=== PATIENT | female | born 1970 | race Hispanic/Latino ===

== ENCOUNTER 2017-05-13 09:57 | Emergency (ER) | payer MEDICARE ==
[~2017-05-13 09:57] MED LIST: ALBU2.5V2 IH; ALPR-411 PO; ASPI-555 PO; BENZ-39 PO; DIPH25TA20 PO; ESOM40CA PO; FENT50PAT TD; FERR325T22 PO; FOLI1TAB15 PO; FURO20TA4 PO; HYDR12.54 PO; HYDR28OI10 TP; INSU100V12 SQ; LEVO175T20 PO; LID5O TP; LORA10TA7 PO; MELO-106 PO; METH2.5T6 PO; METO-409 PO; MYCO500T PO; ONDA8TAB11 PO; POTA-79 PO; PRED10TA3 PO; PREG100C PO; PROZ5L PO; REPA2 PO; ROPI1TAB38 PO; TEMA30CA5 PO; TRAM50TA4 PO; TRIAMCINOLONE ACET TP; VALS160T28 PO; [UNRECOGNIZED DRUG - CODE] PO
[2017-05-13 10:30] LABS: BASOPHILS % (AUTO) 0.8 % (0.0-5.0); EOSINOPHILS % (AUTO) 1.4 % (0.0-8.0); HEMATOCRIT 37.6 % (36-48); LYMPHOCYTES % (AUTO) 25.1 % (21.0-51.0); MEAN CORPUSCULAR HEMOGLOBIN 27.7 pg (27.0-33.0); MEAN CORPUSCULAR HGB CONC 32.7 g/dL (32.0-36.0); MEAN CORPUSCULAR VOLUME 84.5 fL (79-99); MONOCYTES % (AUTO) 7.4 % (3.0-13.0); NEUTROPHILS % (AUTO) 65.3 % (40.0-77.0); NUCLEATED RED BLOOD CELLS 0.1 % (0.0-0.19); PLATELET COUNT (AUTO) 113 K/uL (130-400); RED BLOOD CELL COUNT(AUTO) 4.45 MIL/uL (4.00-5.50); RED CELL DISTRIBUTION WIDTH 16.1 % (11.0-15.5); WHITE BLOOD COUNT (AUTO) 4.6 K/uL (4.8-10.8)
[2017-05-13 10:43] LABS: CARBON DIOXIDE 27 mmol/L (21-32); CHLORIDE 103 mmol/L (101-111); GLOMERULAR FILTR. RATE CALC 63 mL/min (>60); GLUCOSE,RANDOM 275 mg/dL (70-105); POTASSIUM 3.8 mmol/L (3.5-5.1); SODIUM SERUM 138 mmol/L (136-145); UREA NITROGEN, BLOOD 11 mg/dL (7-18)
[2017-05-13 10:56] LABS: ALANINE AMINOTRANSFERASE 25 U/L (12-78); ALBUMIN 2.8 g/dL (3.5-5.0); ASPARTATE AMINOTRANSFERASE 22 U/L (10-37); BILIRUBIN,TOTAL 0.2 mg/dL (0.2-1.0); CREATINE KINASE MB < 0.5 ng/mL (0.5-3.6); CREATINE KINASE, TOTAL 31 U/L (21-232); TOTAL PROTEIN, SERUM 6.4 g/dL (6.0-8.3)
[2017-05-13] MEDS ORDERED: ACETAMINOPHEN 325 MG TAB ONE (10:57)
== END 2017-05-13 11:58 | disposition home or self-care (01) ==
LOC: EDH 09:57
DX: J09.X2 Influenza due to identified novel influenza A virus with other respiratory manifestations (principal); E11.9 Type 2 diabetes mellitus without complications; I10 Essential (primary) hypertension; M32.9 Systemic lupus erythematosus, unspecified; I25.10 Atherosclerotic heart disease of native coronary artery without angina pectoris; Z90.710 Acquired absence of both cervix and uterus; Z98.890 Other specified postprocedural states
CPT/HCPCS: 36415; 71010; 80053; 82550; 82553; 83605; 84484; 85025; 87040; 87804; 93005

== ENCOUNTER 2017-05-17 12:11 | Inpatient (IN) | payer MEDICARE ==
[~2017-05-17] VITALS: Ht 165.1 cm; Wt 91.5 kg
[2017-05-17] MEDS ORDERED: METHYLPREDNISOLONE SOD SUCC 125MG/2ML VIAL ONE (12:32)
[2017-05-17] MEDS ORDERED: IPRATROPIUM/ALBUTEROL SULFATE 3 ML SOLUTION IH ONE ×2 (12:38→14:19)
[2017-05-17 13:03] LABS: BASOPHILS % (AUTO) 2.5 % (0.0-5.0); EOSINOPHILS % (AUTO) 1.7 % (0.0-8.0); HEMATOCRIT 37.3 % (36-48); LYMPHOCYTES % (AUTO) 31.9 % (21.0-51.0); MEAN CORPUSCULAR HEMOGLOBIN 27.7 pg (27.0-33.0); MEAN CORPUSCULAR HGB CONC 32.9 g/dL (32.0-36.0); MEAN CORPUSCULAR VOLUME 84.2 fL (79-99); MONOCYTES % (AUTO) 6.9 % (3.0-13.0); PLATELET COUNT (AUTO) 159 K/uL (130-400); RED BLOOD CELL COUNT(AUTO) 4.43 MIL/uL (4.00-5.50); RED CELL DISTRIBUTION WIDTH 16.1 % (11.0-15.5); WHITE BLOOD COUNT (AUTO) 4.6 K/uL (4.8-10.8)
[2017-05-17 13:34] LABS: CARBON DIOXIDE 25 mmol/L (21-32); CHLORIDE 105 mmol/L (101-111); CREATININE 0.7 mg/dL (0.5-1.5); GLOMERULAR FILTR. RATE CALC 95 mL/min (>60); GLUCOSE,RANDOM 152 mg/dL (70-105); POTASSIUM 3.4 mmol/L (3.5-5.1); SODIUM SERUM 142 mmol/L (136-145); UREA NITROGEN, BLOOD 7 mg/dL (7-18)
[2017-05-17 13:48] LABS: ALANINE AMINOTRANSFERASE 16 U/L (12-78); ALBUMIN 2.8 g/dL (3.5-5.0); ASPARTATE AMINOTRANSFERASE 16 U/L (10-37); BILIRUBIN,TOTAL 0.5 mg/dL (0.2-1.0); CREATINE KINASE MB < 0.5 ng/mL (0.5-3.6); CREATINE KINASE, TOTAL 26 U/L (21-232); TOTAL PROTEIN, SERUM 6.5 g/dL (6.0-8.3)
[2017-05-17] MEDS ORDERED: PROMETHAZINE/CODEINE 6.25-10MG/5ML CUP PO SCH (15:15)
[2017-05-17] MEDS: SODIUM CHLORIDE 0.9% 1000ML 1,000 ML IV SCH (17:17)
[2017-05-17] MEDS: METHYLPREDNISOLONE SOD SUCC 125MG/2ML VIAL IVP SCH (17:18)
[2017-05-17] MEDS: ALBUTEROL SULFATE 0.083% 2.5 MG/3 ML INH IH SCH ×2 (18:41→22:19)
[2017-05-17 19:00] VITALS: BP 148/94
[2017-05-17] MEDS: OSELTAMIVIR PHOSPHATE 75 MG CAP PO SCH (21:23)
[2017-05-17] MEDS: GUAIFENESIN SUGAR-FREE 100 MG/5 ML UDCUP PO PRN (21:48)
[2017-05-17] MEDS ORDERED: ONDANSETRON ODT 4 MG TAB PO PRN (22:30)
[2017-05-17] MEDS ORDERED: ALPRAZOLAM 1 MG TAB PO PRN (22:30)
[2017-05-17] MEDS ORDERED: TRAMADOL HCL 50 MG TABLET PO PRN (22:30)
[2017-05-17] MEDS ORDERED: POTASSIUM CHLORIDE 10% ELIXIR 20 MEQ/15 ML UDCUP PO PRN (23:45)
[2017-05-17] MEDS ORDERED: ACETAMINOPHEN 325 MG TAB PO PRN (23:45)
[2017-05-17] MEDS ORDERED: GLUCAGON 1MG KIT 1 MG ML IM PRN (23:45)
[2017-05-17] MEDS ORDERED: DEXTROSE 50%-WATER 50 ML DISP.SYRIN IV PRN (23:45)
[2017-05-17] MEDS ORDERED: LACTULOSE 20 GM/30 ML UDCUP PO PRN (23:45)
[2017-05-17] MEDS ORDERED: POTASSIUM CHLORIDE 20MEQ/100ML 100 ML IV PRN (23:45)
[2017-05-17] MEDS ORDERED: HYDRALAZINE HCL 20 MG/ML VIAL IV PRN (23:45)
[2017-05-17] MEDS ORDERED: LIDOCAINE HCL-MPF 1% 2ML VIAL IVP PRN (23:45)
[2017-05-18] VITALS: BP 145/83
[2017-05-18] MEDS: METHYLPREDNISOLONE SOD SUCC 125MG/2ML VIAL IVP SCH ×4 (00:44→18:23)
[2017-05-18] MEDS: AZITHROMYCIN 500MG+NS 250ML 250 ML IV SCH (00:44)
[2017-05-18] MEDS ORDERED: INSULIN HUMULIN R 100 UNIT/ML 3ML SQ SCH ×2 (01:00→07:30)
[2017-05-18] MEDS: ALBUTEROL SULFATE 0.083% 2.5 MG/3 ML INH IH SCH ×5 (02:05→21:51)
[2017-05-18 04:00] VITALS: BP 160/91
[2017-05-18] MEDS: LEVOTHYROXINE 100 MCG TABLET PO SCH (06:22)
[2017-05-18] MEDS: LEVOTHYROXINE 75 MCG TABLET PO SCH (06:22)
[2017-05-18] MEDS: INSULIN HUMULIN R 100 UNIT/ML 3ML SQ SCH ×4 (06:33→22:37)
[2017-05-18 07:00] VITALS: BP 128/79
[2017-05-18 08:04] LABS: BASOPHILS % (AUTO) 0.2 % (0.0-5.0); HEMATOCRIT 34.8 % (36-48); LYMPHOCYTES % (AUTO) 20.3 % (21.0-51.0); MEAN CORPUSCULAR HEMOGLOBIN 27.8 pg (27.0-33.0); MEAN CORPUSCULAR HGB CONC 33.3 g/dL (32.0-36.0); MEAN CORPUSCULAR VOLUME 83.4 fL (79-99); MONOCYTES % (AUTO) 1.8 % (3.0-13.0); NEUTROPHILS % (AUTO) 77.7 % (40.0-77.0); PLATELET COUNT (AUTO) 163 K/uL (130-400); RED BLOOD CELL COUNT(AUTO) 4.17 MIL/uL (4.00-5.50); RED CELL DISTRIBUTION WIDTH 15.7 % (11.0-15.5); WHITE BLOOD COUNT (AUTO) 2.6 K/uL (4.8-10.8)
[2017-05-18 08:19] LABS: HEMOGLOBIN A1C 11.1 % (4.0-6.0)
[2017-05-18 08:45] LABS: CREATININE 1.1 mg/dL (0.5-1.5); POTASSIUM 3.5 mmol/L (3.5-5.1); THYROID STIMULATING HORMONE 2.17 uIU/mL (0.36-3.74)
[2017-05-18] MEDS: Metoprolol Succinate 100 MG PO SCH (09:00)
[2017-05-18] MEDS: PROZAC PO SCH (09:00)
[2017-05-18] MEDS: GUAIFENESIN SUGAR-FREE 100 MG/5 ML UDCUP PO PRN (11:43)
[2017-05-18] MEDS: FOLIC ACID 1 MG TABLET PO SCH (11:43)
[2017-05-18] MEDS: FAMOTIDINE 20MG TAB 20 MG TAB PO SCH ×2 (11:44→22:57)
[2017-05-18] MEDS: ASPIRIN 81 MG EC TAB PO SCH (11:44)
[2017-05-18] MEDS: FUROSEMIDE 20 MG TABLET PO SCH ×2 (11:44→22:57)
[2017-05-18] MEDS: OSELTAMIVIR PHOSPHATE 75 MG CAP PO SCH ×2 (11:44→22:57)
[2017-05-18] MEDS: LOSARTAN 100 MG TABLET PO SCH (11:44)
[2017-05-18] MEDS: MELOXICAM 7.5 MG TABLET PO SCH ×2 (11:45→22:57)
[2017-05-18] MEDS: FERROUS SULFATE 325 MG TABLET.DR PO SCH (11:45)
[2017-05-18] MEDS: PANTOPRAZOLE SODIUM 40 MG TABLET.DR PO SCH (11:45)
[2017-05-18] MEDS: PREGABALIN 100 MG CAPSULE PO SCH ×3 (11:47→23:01)
[2017-05-18] MEDS: SODIUM CHLORIDE 0.9% 1000ML 1,000 ML IV SCH ×2 (11:49→12:30)
[2017-05-18] MEDS: POTASSIUM CHLORIDE 20 MEQ ERTAB PO PRN (12:01)
[2017-05-18 12:10] VITALS: BP 145/91
[2017-05-18 16:00] VITALS: BP 136/65
[2017-05-18 19:00] VITALS: BP 149/92
[2017-05-18] MEDS: TEMAZEPAM 30 MG CAP PO SCH (22:57)
[2017-05-18] MEDS: ROPINIROLE HCL 1 MG TABLET PO SCH (22:58)
[2017-05-18] MEDS ORDERED: SERT100T PO (23:38)
[2017-05-19] VITALS (7 sets, daily range): BP systolic 112–160; BP diastolic 63–91
[2017-05-19] MEDS ORDERED: DIPHENHYDRAMINE HCL 25 MG CAPSULE PO PRN
[2017-05-19] MEDS ORDERED: HYDROCORTISONE 2.5% 28GM CREAM TP PRN
[2017-05-19] MEDS ORDERED: HYDROCODONE/ACETAMINOPHEN 10/325 MG TAB PO PRN
[2017-05-19] MEDS: METHYLPREDNISOLONE SOD SUCC 125MG/2ML VIAL IVP SCH ×4 (00:18→17:09)
[2017-05-19] MEDS: AZITHROMYCIN 500MG+NS 250ML 250 ML IV SCH (00:18)
[2017-05-19] MEDS: ALBUTEROL SULFATE 0.083% 2.5 MG/3 ML INH IH SCH ×6 (02:20→22:12)
[2017-05-19 04:37] LABS: BASOPHILS % (AUTO) 0.1 % (0.0-5.0); HEMATOCRIT 30.9 % (36-48); LYMPHOCYTES % (AUTO) 3.1 % (21.0-51.0); MEAN CORPUSCULAR HEMOGLOBIN 28.2 pg (27.0-33.0); MEAN CORPUSCULAR HGB CONC 33.5 g/dL (32.0-36.0); MEAN CORPUSCULAR VOLUME 84.2 fL (79-99); MONOCYTES % (AUTO) 2.1 % (3.0-13.0); NEUTROPHILS % (AUTO) 94.7 % (40.0-77.0); PLATELET COUNT (AUTO) 184 K/uL (130-400); RED BLOOD CELL COUNT(AUTO) 3.67 MIL/uL (4.00-5.50); RED CELL DISTRIBUTION WIDTH 15.7 % (11.0-15.5); WHITE BLOOD COUNT (AUTO) 8.1 K/uL (4.8-10.8)
[2017-05-19 04:49] LABS: CREATININE 1.3 mg/dL (0.5-1.5); POTASSIUM 3.3 mmol/L (3.5-5.1)
[2017-05-19] MEDS: LEVOTHYROXINE 100 MCG TABLET PO SCH (06:19)
[2017-05-19] MEDS: POTASSIUM CHLORIDE 20 MEQ ERTAB PO PRN ×3 (06:19→13:58)
[2017-05-19] MEDS: LEVOTHYROXINE 75 MCG TABLET PO SCH (06:20)
[2017-05-19] MEDS: INSULIN HUMULIN R 100 UNIT/ML 3ML SQ SCH ×4 (06:25→22:32)
[2017-05-19] MEDS: SODIUM CHLORIDE 0.9% 1000ML 1,000 ML IV SCH ×4 (06:31→17:19)
[2017-05-19] MEDS: PROZAC PO SCH (09:00)
[2017-05-19] MEDS ORDERED: INSULIN DETEMIR 10ML 100 UNIT/ML 10ML SQ SCH ×2 (09:00→21:00)
[2017-05-19] MEDS: MYCOPHENOLATE MOFETIL 500 MG PO SCH ×2 (09:00→21:00)
[2017-05-19] MEDS: POTASSIUM CHLORIDE 20 MEQ ERTAB PO SCH ×4 (09:00→21:00)
[2017-05-19] MEDS ORDERED: FENTANYL 50 MCG/HR PATCH TD SCH (09:00)
[2017-05-19] MEDS: Metoprolol Succinate 100 MG PO SCH (09:00)
[2017-05-19] MEDS: LIDOCAINE HCL 5% OINT 36GM TUBE TP SCH ×3 (09:00→21:00)
[2017-05-19] MEDS: SERTRALINE HCL 50 MG TABLET PO SCH (10:07)
[2017-05-19] MEDS: HYDROCHLOROTHIAZIDE 25 MG TABLET PO SCH (10:08)
[2017-05-19] MEDS: LORATADINE 10 MG TABLET PO SCH (10:08)
[2017-05-19] MEDS: PREGABALIN 100 MG CAPSULE PO SCH ×3 (10:12→21:58)
[2017-05-19] MEDS: ASPIRIN 81 MG EC TAB PO SCH (10:12)
[2017-05-19] MEDS: OSELTAMIVIR PHOSPHATE 75 MG CAP PO SCH ×2 (10:13→21:58)
[2017-05-19] MEDS: LOSARTAN 100 MG TABLET PO SCH (10:13)
[2017-05-19] MEDS: FERROUS SULFATE 325 MG TABLET.DR PO SCH (10:14)
[2017-05-19] MEDS: FUROSEMIDE 20 MG TABLET PO SCH ×2 (10:14→21:57)
[2017-05-19] MEDS: MELOXICAM 7.5 MG TABLET PO SCH ×2 (10:15→21:57)
[2017-05-19] MEDS: FAMOTIDINE 20MG TAB 20 MG TAB PO SCH ×2 (10:15→21:58)
[2017-05-19] MEDS: PANTOPRAZOLE SODIUM 40 MG TABLET.DR PO SCH (10:15)
[2017-05-19] MEDS: FOLIC ACID 1 MG TABLET PO SCH (10:16)
[2017-05-19] MEDS: REPAGLINIDE 1 MG TAB PO SCH ×3 (10:25→17:04)
[2017-05-19] MEDS: INSULIN GLARGINE 100 UNITS/ML 10 ML VIAL SQ SCH ×2 (12:45→22:32)
[2017-05-19] MEDS: TEMAZEPAM 30 MG CAP PO SCH (21:58)
[2017-05-19] MEDS: ROPINIROLE HCL 1 MG TABLET PO SCH (21:58)
[2017-05-20] MEDS: METHYLPREDNISOLONE SOD SUCC 125MG/2ML VIAL IVP SCH ×3 (01:19→11:23)
[2017-05-20] MEDS: AZITHROMYCIN 500MG+NS 250ML 250 ML IV SCH ×2 (01:19→23:28)
[2017-05-20] MEDS: ALBUTEROL SULFATE 0.083% 2.5 MG/3 ML INH IH SCH ×6 (01:51→21:56)
[2017-05-20 04:00] VITALS: BP 125/67
[2017-05-20 04:31] LABS: BASOPHILS % (AUTO) 0.1 % (0.0-5.0); HEMATOCRIT 32.5 % (36-48); LYMPHOCYTES % (AUTO) 2.4 % (21.0-51.0); MEAN CORPUSCULAR HEMOGLOBIN 27.7 pg (27.0-33.0); MEAN CORPUSCULAR VOLUME 83.9 fL (79-99); MONOCYTES % (AUTO) 1.6 % (3.0-13.0); NEUTROPHILS % (AUTO) 95.9 % (40.0-77.0); PLATELET COUNT (AUTO) 187 K/uL (130-400); RED BLOOD CELL COUNT(AUTO) 3.87 MIL/uL (4.00-5.50); WHITE BLOOD COUNT (AUTO) 10.1 K/uL (4.8-10.8)
[2017-05-20 04:36] LABS: POTASSIUM 3.2 mmol/L (3.5-5.1)
[2017-05-20] MEDS: LEVOTHYROXINE 100 MCG TABLET PO SCH (06:15)
[2017-05-20] MEDS: SODIUM CHLORIDE 0.9% 1000ML 1,000 ML IV SCH (06:15)
[2017-05-20] MEDS: LEVOTHYROXINE 75 MCG TABLET PO SCH (06:15)
[2017-05-20] MEDS: POTASSIUM CHLORIDE 20 MEQ ERTAB PO PRN (06:16)
[2017-05-20] MEDS: INSULIN HUMULIN R 100 UNIT/ML 3ML SQ SCH ×4 (06:24→22:01)
[2017-05-20] MEDS: INSULIN GLARGINE 100 UNITS/ML 10 ML VIAL SQ SCH ×2 (06:25→22:05)
[2017-05-20 07:52] VITALS: BP 148/88
[2017-05-20] MEDS: MYCOPHENOLATE MOFETIL 500 MG PO SCH ×2 (09:00→21:00)
[2017-05-20] MEDS: Metoprolol Succinate 100 MG PO SCH (09:00)
[2017-05-20] MEDS: LIDOCAINE HCL 5% OINT 36GM TUBE TP SCH ×3 (09:00→21:00)
[2017-05-20] MEDS: PROZAC PO SCH (09:00)
[2017-05-20] MEDS: POTASSIUM CHLORIDE 20 MEQ ERTAB PO SCH ×4 (10:23→21:45)
[2017-05-20] MEDS: LOSARTAN 100 MG TABLET PO SCH (10:23)
[2017-05-20] MEDS: OSELTAMIVIR PHOSPHATE 75 MG CAP PO SCH ×2 (10:23→21:45)
[2017-05-20] MEDS: LORATADINE 10 MG TABLET PO SCH (10:23)
[2017-05-20] MEDS: PREGABALIN 100 MG CAPSULE PO SCH ×3 (10:23→21:45)
[2017-05-20] MEDS: MELOXICAM 7.5 MG TABLET PO SCH ×2 (10:24→21:45)
[2017-05-20] MEDS: FAMOTIDINE 20MG TAB 20 MG TAB PO SCH ×2 (10:24→21:45)
[2017-05-20] MEDS: SERTRALINE HCL 50 MG TABLET PO SCH (10:24)
[2017-05-20] MEDS: PANTOPRAZOLE SODIUM 40 MG TABLET.DR PO SCH (10:24)
[2017-05-20] MEDS: FERROUS SULFATE 325 MG TABLET.DR PO SCH (10:24)
[2017-05-20] MEDS: HYDROCHLOROTHIAZIDE 25 MG TABLET PO SCH (10:24)
[2017-05-20] MEDS: ASPIRIN 81 MG EC TAB PO SCH (10:24)
[2017-05-20] MEDS: FOLIC ACID 1 MG TABLET PO SCH (10:25)
[2017-05-20] MEDS: REPAGLINIDE 1 MG TAB PO SCH ×3 (10:25→17:15)
[2017-05-20] MEDS: FUROSEMIDE 20 MG TABLET PO SCH ×2 (10:25→21:46)
[2017-05-20] MEDS ORDERED: MAGNESIUM SULFATE 1 GM in SODIUM CHLORIDE 0.9% 50 ML IV SCH (11:13)
[2017-05-20] MEDS ORDERED: PHARMACY COMMUNICATION MISC SCH (11:15)
[2017-05-20 11:17] VITALS: BP 153/82
[2017-05-20 16:05] VITALS: BP 146/96
[2017-05-20] MEDS ORDERED: HYDROMORPHONE HCL 2 MG TAB PO PRN (17:15)
[2017-05-20 20:00] VITALS: BP 149/86
[2017-05-20] MEDS: METHYLPREDNISOLONE SOD SUCC 40MG/ML 1ML IVP SCH (21:44)
[2017-05-20] MEDS: TEMAZEPAM 30 MG CAP PO SCH (21:44)
[2017-05-20] MEDS: ROPINIROLE HCL 1 MG TABLET PO SCH (21:44)
[2017-05-20] MEDS ORDERED: INSULIN GLARGINE 100 UNITS/ML 10 ML VIAL SQ ONE (22:02)
[2017-05-21] VITALS: BP 138/82
[2017-05-21] MEDS: ALBUTEROL SULFATE 0.083% 2.5 MG/3 ML INH IH SCH ×4 (01:52→13:56)
[2017-05-21 04:00] VITALS: BP 131/85
[2017-05-21 05:02] LABS: MEAN CORPUSCULAR HEMOGLOBIN 28.7 pg (27.0-33.0); MEAN CORPUSCULAR HGB CONC 33.7 g/dL (32.0-36.0); MEAN CORPUSCULAR VOLUME 85.1 fL (79-99); PLATELET COUNT (AUTO) 209 K/uL (130-400); RED BLOOD CELL COUNT(AUTO) 3.88 MIL/uL (4.00-5.50); RED CELL DISTRIBUTION WIDTH 16.4 % (11.0-15.5); WHITE BLOOD COUNT (AUTO) 10.3 K/uL (4.8-10.8)
[2017-05-21 05:12] LABS: CREATININE 1.2 mg/dL (0.5-1.5); MAGNESIUM 1.9 mg/dL (1.80-2.40); POTASSIUM 3.8 mmol/L (3.5-5.1)
[2017-05-21 05:26] LABS: B-TYPE NATRIURETIC PEPTIDE 192 pg/mL (0-100)
[2017-05-21 07:00] VITALS: BP 126/76
[2017-05-21] MEDS: INSULIN GLARGINE 100 UNITS/ML 10 ML VIAL SQ SCH (07:30)
[2017-05-21] MEDS: INSULIN HUMULIN R 100 UNIT/ML 3ML SQ SCH ×3 (08:06→16:49)
[2017-05-21] MEDS: LOSARTAN 100 MG TABLET PO SCH (08:51)
[2017-05-21] MEDS: MELOXICAM 7.5 MG TABLET PO SCH (08:51)
[2017-05-21] MEDS: REPAGLINIDE 1 MG TAB PO SCH ×2 (08:51→13:33)
[2017-05-21] MEDS: ASPIRIN 81 MG EC TAB PO SCH (08:56)
[2017-05-21] MEDS: FERROUS SULFATE 325 MG TABLET.DR PO SCH (08:56)
[2017-05-21] MEDS: SERTRALINE HCL 50 MG TABLET PO SCH (08:56)
[2017-05-21] MEDS: OSELTAMIVIR PHOSPHATE 75 MG CAP PO SCH (08:56)
[2017-05-21] MEDS: FOLIC ACID 1 MG TABLET PO SCH (08:56)
[2017-05-21] MEDS: PREGABALIN 100 MG CAPSULE PO SCH ×2 (08:56→13:32)
[2017-05-21] MEDS: POTASSIUM CHLORIDE 20 MEQ ERTAB PO SCH ×2 (08:57→13:33)
[2017-05-21] MEDS: PANTOPRAZOLE SODIUM 40 MG TABLET.DR PO SCH (08:57)
[2017-05-21] MEDS: FUROSEMIDE 20 MG TABLET PO SCH (08:57)
[2017-05-21] MEDS: FAMOTIDINE 20MG TAB 20 MG TAB PO SCH (08:58)
[2017-05-21] MEDS: METHYLPREDNISOLONE SOD SUCC 40MG/ML 1ML IVP SCH ×2 (08:58→13:32)
[2017-05-21] MEDS: LEVOTHYROXINE 75 MCG TABLET PO SCH (08:58)
[2017-05-21] MEDS: LORATADINE 10 MG TABLET PO SCH (08:58)
[2017-05-21] MEDS: HYDROCHLOROTHIAZIDE 25 MG TABLET PO SCH (08:58)
[2017-05-21] MEDS: MYCOPHENOLATE MOFETIL 500 MG PO SCH (09:00)
[2017-05-21] MEDS: Metoprolol Succinate 100 MG PO SCH (09:00)
[2017-05-21] MEDS: LIDOCAINE HCL 5% OINT 36GM TUBE TP SCH ×2 (09:00→14:38)
[2017-05-21] MEDS: PROZAC PO SCH (09:00)
[2017-05-21] MEDS: LEVOTHYROXINE 100 MCG TABLET PO SCH (09:02)
[2017-05-21 11:00] VITALS: BP 130/87
[2017-05-21 16:00] VITALS: BP 145/95
[2017-05-21] MEDS ORDERED: INSULIN GLARGINE 100 UNITS/ML 10 ML VIAL SQ SCH (21:00)
[2017-05-25] MEDS ORDERED: METHOTREXATE SODIUM 2.5 MG TABLET PO SCH (09:00)
== END 2017-05-21 18:30 | disposition home or self-care (01) | DRG 194 ==
LOC: EDH 12:11 → EDHIP 15:10 → 3DH 16:28
PROVIDERS: ADMIT Internal Medicine Hematology & Oncology; ATTEND Internal Medicine Hematology & Oncology
DX: J10.1 Influenza due to other identified influenza virus with other respiratory manifestations (principal); J44.1 Chronic obstructive pulmonary disease with (acute) exacerbation; M32.9 Systemic lupus erythematosus, unspecified; E11.22 Type 2 diabetes mellitus with diabetic chronic kidney disease; E44.1 Mild protein-calorie malnutrition; E11.65 Type 2 diabetes mellitus with hyperglycemia; F32.9 Major depressive disorder, single episode, unspecified; I25.10 Atherosclerotic heart disease of native coronary artery without angina pectoris; I12.9 Hypertensive chronic kidney disease with stage 1 through stage 4 chronic kidney disease, or unspecified chronic kidney disease; G89.4 Chronic pain syndrome; N18.9 Chronic kidney disease, unspecified; E87.6 Hypokalemia; Z90.710 Acquired absence of both cervix and uterus; Z88.0 Allergy status to penicillin; Z68.33 Body mass index [BMI] 33.0-33.9, adult
CPT/HCPCS: 36415; 71046; 80048; 80053; 82550; 82553; 82947; 82948; 83036; 83735; 83880; 84443; 84484; 85025; 85027; 93005; 94640; 94664; J0456; J1815; J2920; J2930; J3475; J7030

== ENCOUNTER 2017-06-23 16:59 | Inpatient (IN) | payer MEDICARE ==
[~2017-06-23] VITALS: Ht 170.2 cm; Wt 98.3 kg
[~2017-06-23 16:59] MED LIST changes: +SERT100T PO; -TRIAMCINOLONE ACET TP
[2017-06-23] MEDS ORDERED: IPRATROPIUM/ALBUTEROL SULFATE 3 ML SOLUTION IH ONE (18:04)
[2017-06-23 18:10] LABS: BASOPHILS % (AUTO) 0.5 % (0.0-5.0); EOSINOPHILS % (AUTO) 1.2 % (0.0-8.0); HEMATOCRIT 37.7 % (36-48); LYMPHOCYTES % (AUTO) 20.8 % (21.0-51.0); MEAN CORPUSCULAR HEMOGLOBIN 28.7 pg (27.0-33.0); MEAN CORPUSCULAR HGB CONC 33.5 g/dL (32.0-36.0); MEAN CORPUSCULAR VOLUME 85.7 fL (79-99); MONOCYTES % (AUTO) 7.5 % (3.0-13.0); PLATELET COUNT (AUTO) 150 K/uL (130-400); RED CELL DISTRIBUTION WIDTH 16.2 % (11.0-15.5); WHITE BLOOD COUNT (AUTO) 4.7 K/uL (4.8-10.8)
[2017-06-23 18:18] LABS: CREATININE 0.8 mg/dL (0.5-1.5); POTASSIUM 3.6 mmol/L (3.5-5.1)
[2017-06-23 18:22] LABS: ALBUMIN 3.1 g/dL (3.5-5.0); BILIRUBIN,TOTAL 0.5 mg/dL (0.2-1.0); TOTAL PROTEIN, SERUM 7.5 g/dL (6.0-8.3)
[2017-06-23] MEDS ORDERED: SODIUM CHLORIDE 0.9% 1000ML 1,000 ML IV ONE (18:48)
[2017-06-23] MEDS ORDERED: ONDANSETRON HCL 4 MG/2 ML VIAL ONE (18:48)
[2017-06-23] MEDS ORDERED: MORPHINE SULFATE 8 MG/ML VIAL ONE (18:49)
[2017-06-23 19:01] LABS: B-TYPE NATRIURETIC PEPTIDE 57 pg/mL (0-100)
[2017-06-23] MEDS ORDERED: METHYLPREDNISOLONE SOD SUCC 125MG/2ML VIAL ONE (20:16)
[2017-06-23] MEDS ORDERED: MEROPENEM 1 GM VIAL ONE (20:36)
[2017-06-23] MEDS ORDERED: HYDROMORPHONE HCL 2 MG/ML VIAL ONE (20:37)
[2017-06-23] MEDS: MEROPENEM 1 GM VIAL IVP SCH (22:00)
[2017-06-23] MEDS: ALBUTEROL SULFATE 0.083% 2.5 MG/3 ML INH IH SCH (22:22)
[2017-06-24 00:15] VITALS: BP 126/82
[2017-06-24] MEDS: SODIUM CHLORIDE 0.9% 1000ML 1,000 ML IV SCH ×4 (00:59→22:47)
[2017-06-24] MEDS: ALBUTEROL SULFATE 0.083% 2.5 MG/3 ML INH IH SCH ×6 (01:46→22:00)
[2017-06-24 04:00] VITALS: BP 120/72
[2017-06-24] MEDS: MEROPENEM 1 GM VIAL IVP SCH ×3 (05:46→22:38)
[2017-06-24] MEDS: METHYLPREDNISOLONE SOD SUCC 125MG/2ML VIAL IVP SCH ×4 (05:47→20:36)
[2017-06-24] MEDS ORDERED: HYDROMORPHONE 1 MG/1 ML AMP IVP PRN (06:45)
[2017-06-24 08:35] VITALS: BP 112/70
[2017-06-24] MEDS: INSULIN HUMULIN R 100 UNIT/ML 3ML SQ SCH ×5 (08:40→20:40)
[2017-06-24 11:43] VITALS: BP 124/73
[2017-06-24] MEDS ORDERED: BENZONATATE 100 MG CAPSULE PO PRN (12:45)
[2017-06-24] MEDS ORDERED: HYDROCODONE/ACETAMINOPHEN 10/325 MG TAB PO PRN (12:45)
[2017-06-24] MEDS ORDERED: TRAMADOL HCL 50 MG TABLET PO PRN (12:45)
[2017-06-24] MEDS ORDERED: ALBUTEROL SULFATE 0.083% 2.5 MG/3 ML INH IH PRN (12:45)
[2017-06-24] MEDS ORDERED: IOPAMIDOL-370 100 ML VIAL IV ONE (12:53)
[2017-06-24] MEDS ORDERED: DIPHENHYDRAMINE HCL 25 MG CAPSULE PO PRN (13:15)
[2017-06-24] MEDS ORDERED: HYDROCORTISONE 1% 28.35 GM CREAM TP PRN (13:30)
[2017-06-24] MEDS: LIDOCAINE HCL 5% OINT 36GM TUBE TP SCH ×2 (15:01→20:41)
[2017-06-24] MEDS: PREGABALIN 100 MG CAPSULE PO SCH ×2 (15:03→18:05)
[2017-06-24] MEDS ORDERED: MYCOPHENOLATE MOFETIL 250 MG CAPSULE ONE (15:09)
[2017-06-24] MEDS ORDERED: PHARMACY COMMUNICATION MISC SCH ×2 (15:15→18:00)
[2017-06-24] MEDS: FENTANYL 50 MCG/HR PATCH TD SCH (15:21)
[2017-06-24] MEDS: MYCOPHENOLATE MOFETIL 250 MG CAPSULE PO SCH ×2 (15:30→19:48)
[2017-06-24 16:00] VITALS: BP 133/74
[2017-06-24] MEDS: REPAGLINIDE 1 MG TAB PO SCH (17:00)
[2017-06-24] MEDS: POTASSIUM CHLORIDE 20 MEQ ERTAB PO SCH ×2 (18:06→20:34)
[2017-06-24] MEDS: HYDROMORPHONE HCL 2 MG/ML VIAL IVP PRN (18:09)
[2017-06-24 19:00] VITALS: BP 131/73
[2017-06-24] MEDS: TEMAZEPAM 30 MG CAP PO SCH (20:34)
[2017-06-24] MEDS: FUROSEMIDE 20 MG TABLET PO SCH (20:35)
[2017-06-24] MEDS: ROPINIROLE HCL 1 MG TABLET PO SCH (20:35)
[2017-06-24] MEDS: MELOXICAM 7.5 MG TABLET PO SCH (20:35)
[2017-06-24] MEDS: METOPROLOL TARTRATE 50 MG TAB PO SCH (20:35)
[2017-06-24] MEDS ORDERED: INSULIN GLARGINE 100 UNITS/ML 10 ML VIAL SQ SCH ×2 (21:00→21:15)
[2017-06-24] MEDS ORDERED: ONDANSETRON ODT 4 MG TAB PO PRN (21:00)
[2017-06-24] MEDS ORDERED: MYCOPHENOLATE MOFETIL 250 MG CAPSULE PO SCH (21:00)
[2017-06-24] MEDS ORDERED: INSULIN HUMULIN R 100 UNIT/ML 3ML IV SCH (21:15)
[2017-06-24] MEDS: ALPRAZOLAM 1 MG TAB PO PRN (22:39)
[2017-06-25] VITALS: BP 135/87
[2017-06-25] MEDS: ALBUTEROL SULFATE 0.083% 2.5 MG/3 ML INH IH SCH ×6 (01:36→21:44)
[2017-06-25] MEDS: METHYLPREDNISOLONE SOD SUCC 125MG/2ML VIAL IVP SCH ×3 (03:01→21:47)
[2017-06-25 04:00] VITALS: BP 112/68
[2017-06-25] MEDS: LEVOTHYROXINE 75 MCG TABLET PO SCH (06:59)
[2017-06-25] MEDS: LEVOTHYROXINE 100 MCG TABLET PO SCH (07:00)
[2017-06-25] MEDS: MEROPENEM 1 GM VIAL IVP SCH ×3 (07:00→21:44)
[2017-06-25] MEDS: INSULIN HUMULIN R 100 UNIT/ML 3ML SQ SCH ×8 (07:01→22:04)
[2017-06-25 07:25] LABS: HEMATOCRIT 29.2 % (36-48); MEAN CORPUSCULAR HEMOGLOBIN 28.9 pg (27.0-33.0); MEAN CORPUSCULAR HGB CONC 34.2 g/dL (32.0-36.0); MEAN CORPUSCULAR VOLUME 84.4 fL (79-99); PLATELET COUNT (AUTO) 201 K/uL (130-400); RED BLOOD CELL COUNT(AUTO) 3.46 MIL/uL (4.00-5.50); RED CELL DISTRIBUTION WIDTH 16.2 % (11.0-15.5); WHITE BLOOD COUNT (AUTO) 10.4 K/uL (4.8-10.8)
[2017-06-25 07:47] VITALS: BP 134/82
[2017-06-25] MEDS ORDERED: GUAIFENESIN-DM 200/20 MG 10 ML PO PRN (08:30)
[2017-06-25] MEDS ORDERED: HYDRALAZINE HCL 20 MG/ML VIAL IV PRN (08:30)
[2017-06-25] MEDS ORDERED: MAG HYDROX/AL HYDROX/SIMETH ES 30 ML SUSP UDCUP PO PRN (08:30)
[2017-06-25] MEDS ORDERED: ACETAMINOPHEN 325 MG TAB PO PRN ×2 (08:30)
[2017-06-25] MEDS ORDERED: NITROGLYCERIN 0.4 MG SL TAB SL PRN (08:30)
[2017-06-25] MEDS ORDERED: ONDANSETRON HCL 4 MG/2 ML VIAL IV PRN (08:30)
[2017-06-25] MEDS ORDERED: LACTULOSE 20 GM/30 ML UDCUP PO PRN (08:30)
[2017-06-25 08:42] LABS: CREATININE 0.9 mg/dL (0.5-1.5)
[2017-06-25] MEDS: ASPIRIN 81 MG EC TAB PO SCH (08:47)
[2017-06-25] MEDS: MELOXICAM 7.5 MG TABLET PO SCH ×2 (08:47→21:45)
[2017-06-25] MEDS: LOSARTAN 100 MG TABLET PO SCH (08:47)
[2017-06-25] MEDS: HYDROCHLOROTHIAZIDE 25 MG TABLET PO SCH (08:48)
[2017-06-25] MEDS: LORATADINE 10 MG TABLET PO SCH (08:48)
[2017-06-25] MEDS: SERTRALINE HCL 50 MG TABLET PO SCH (08:48)
[2017-06-25] MEDS: PANTOPRAZOLE SODIUM 40 MG TABLET.DR PO SCH (08:49)
[2017-06-25] MEDS: MYCOPHENOLATE MOFETIL 250 MG CAPSULE PO SCH ×2 (08:49→17:43)
[2017-06-25] MEDS: FOLIC ACID 1 MG TABLET PO SCH (08:49)
[2017-06-25] MEDS: METOPROLOL TARTRATE 50 MG TAB PO SCH ×2 (08:49→21:47)
[2017-06-25] MEDS: FERROUS SULFATE 325 MG TABLET.DR PO SCH (08:50)
[2017-06-25] MEDS: FUROSEMIDE 20 MG TABLET PO SCH ×2 (08:50→21:47)
[2017-06-25] MEDS: PREDNISONE 10 MG TABLET PO SCH (08:50)
[2017-06-25] MEDS ORDERED: INSULIN GLARGINE 100 UNITS/ML 10 ML VIAL SQ SCH (09:00)
[2017-06-25] MEDS: REPAGLINIDE 1 MG TAB PO SCH ×3 (09:22→17:43)
[2017-06-25] MEDS: ENOXAPARIN SODIUM 40 MG/0.4 ML SYRINGE SQ SCH (09:22)
[2017-06-25] MEDS: LIDOCAINE HCL 5% OINT 36GM TUBE TP SCH ×3 (09:22→21:48)
[2017-06-25] MEDS: HYDROMORPHONE HCL 2 MG/ML VIAL IVP PRN ×2 (09:24→17:48)
[2017-06-25] MEDS: INSULIN GLARGINE 100 UNITS/ML 10 ML VIAL SQ SCH (09:29)
[2017-06-25 11:15] VITALS: BP 143/86
[2017-06-25] MEDS: POTASSIUM CHLORIDE 20 MEQ ERTAB PO SCH ×4 (12:00→17:43)
[2017-06-25] MEDS: SODIUM CHLORIDE 0.9% 1000ML 1,000 ML IV SCH (12:18)
[2017-06-25] MEDS: PREGABALIN 100 MG CAPSULE PO SCH ×3 (12:35→17:48)
[2017-06-25 16:06] VITALS: BP 131/84
[2017-06-25 20:00] VITALS: BP 118/51
[2017-06-25] MEDS: TEMAZEPAM 30 MG CAP PO SCH (21:44)
[2017-06-25] MEDS: ALPRAZOLAM 1 MG TAB PO PRN (21:47)
[2017-06-25] MEDS: ROPINIROLE HCL 1 MG TABLET PO SCH (21:47)
[2017-06-26] VITALS (7 sets, daily range): BP systolic 114–140; BP diastolic 68–84
[2017-06-26] MEDS: POTASSIUM CHLORIDE 20 MEQ ERTAB PO SCH ×8 (01:43→17:58)
[2017-06-26] MEDS: ALBUTEROL SULFATE 0.083% 2.5 MG/3 ML INH IH SCH ×6 (02:05→22:19)
[2017-06-26] MEDS: LEVOTHYROXINE 75 MCG TABLET PO SCH (06:31)
[2017-06-26] MEDS: METHYLPREDNISOLONE SOD SUCC 125MG/2ML VIAL IVP SCH ×3 (06:31→21:05)
[2017-06-26] MEDS: MEROPENEM 1 GM VIAL IVP SCH ×3 (06:31→21:05)
[2017-06-26] MEDS: LEVOTHYROXINE 100 MCG TABLET PO SCH (06:31)
[2017-06-26] MEDS: INSULIN HUMULIN R 100 UNIT/ML 3ML SQ SCH ×8 (06:38→21:26)
[2017-06-26 06:54] LABS: MEAN CORPUSCULAR HEMOGLOBIN 28.9 pg (27.0-33.0); MEAN CORPUSCULAR HGB CONC 33.5 g/dL (32.0-36.0); MEAN CORPUSCULAR VOLUME 86.2 fL (79-99); PLATELET COUNT (AUTO) 193 K/uL (130-400); RED BLOOD CELL COUNT(AUTO) 3.71 MIL/uL (4.00-5.50); RED CELL DISTRIBUTION WIDTH 16.3 % (11.0-15.5)
[2017-06-26 07:06] LABS: CREATININE 1.1 mg/dL (0.5-1.5); POTASSIUM 4.3 mmol/L (3.5-5.1)
[2017-06-26] MEDS: REPAGLINIDE 1 MG TAB PO SCH ×3 (09:03→17:58)
[2017-06-26] MEDS: INSULIN GLARGINE 100 UNITS/ML 10 ML VIAL SQ SCH (09:28)
[2017-06-26] MEDS: ENOXAPARIN SODIUM 40 MG/0.4 ML SYRINGE SQ SCH (09:30)
[2017-06-26] MEDS: MELOXICAM 7.5 MG TABLET PO SCH ×2 (09:30→21:01)
[2017-06-26] MEDS: PANTOPRAZOLE SODIUM 40 MG TABLET.DR PO SCH (09:30)
[2017-06-26] MEDS: ASPIRIN 81 MG EC TAB PO SCH (09:30)
[2017-06-26] MEDS: LOSARTAN 100 MG TABLET PO SCH (09:30)
[2017-06-26] MEDS: METOPROLOL TARTRATE 50 MG TAB PO SCH ×2 (09:30→21:01)
[2017-06-26] MEDS: FOLIC ACID 1 MG TABLET PO SCH (09:31)
[2017-06-26] MEDS: FERROUS SULFATE 325 MG TABLET.DR PO SCH (09:31)
[2017-06-26] MEDS: SERTRALINE HCL 50 MG TABLET PO SCH (09:31)
[2017-06-26] MEDS: FUROSEMIDE 20 MG TABLET PO SCH ×2 (09:31→21:02)
[2017-06-26] MEDS: HYDROCHLOROTHIAZIDE 25 MG TABLET PO SCH (09:31)
[2017-06-26] MEDS: PREDNISONE 10 MG TABLET PO SCH (09:31)
[2017-06-26] MEDS: LORATADINE 10 MG TABLET PO SCH (09:31)
[2017-06-26] MEDS: MYCOPHENOLATE MOFETIL 250 MG CAPSULE PO SCH ×2 (09:39→12:50)
[2017-06-26] MEDS: LIDOCAINE HCL 5% OINT 36GM TUBE TP SCH ×3 (09:39→21:05)
[2017-06-26] MEDS: PREGABALIN 100 MG CAPSULE PO SCH ×3 (09:39→17:58)
[2017-06-26] MEDS: HYDROMORPHONE HCL 2 MG/ML VIAL IVP PRN (21:00)
[2017-06-26] MEDS: ROPINIROLE HCL 1 MG TABLET PO SCH (21:00)
[2017-06-26] MEDS: TEMAZEPAM 30 MG CAP PO SCH (21:01)
[2017-06-26] MEDS: INSULIN HUMULIN R 100 UNIT/ML 3ML IV SCH (22:08)
[2017-06-27] MEDS: POTASSIUM CHLORIDE 20 MEQ ERTAB PO SCH ×8 (00:53→17:10)
[2017-06-27] MEDS: ALBUTEROL SULFATE 0.083% 2.5 MG/3 ML INH IH SCH ×6 (01:22→22:22)
[2017-06-27 04:11] VITALS: BP 115/62
[2017-06-27 05:54] LABS: CREATININE 1.1 mg/dL (0.5-1.5)
[2017-06-27] MEDS: INSULIN HUMULIN R 100 UNIT/ML 3ML SQ SCH ×7 (06:41→21:49)
[2017-06-27] MEDS: MEROPENEM 1 GM VIAL IVP SCH ×3 (06:47→21:53)
[2017-06-27] MEDS: LEVOTHYROXINE 100 MCG TABLET PO SCH (06:48)
[2017-06-27] MEDS: LEVOTHYROXINE 75 MCG TABLET PO SCH (06:48)
[2017-06-27] MEDS: METHYLPREDNISOLONE SOD SUCC 125MG/2ML VIAL IVP SCH (06:48)
[2017-06-27 07:54] VITALS: BP 118/78
[2017-06-27] MEDS: PREGABALIN 100 MG CAPSULE PO SCH ×3 (10:46→17:09)
[2017-06-27] MEDS: ENOXAPARIN SODIUM 40 MG/0.4 ML SYRINGE SQ SCH (10:46)
[2017-06-27] MEDS: METOPROLOL TARTRATE 50 MG TAB PO SCH ×2 (10:46→20:56)
[2017-06-27] MEDS: METHYLPREDNISOLONE SOD SUCC 40MG/ML 1ML IVP SCH ×2 (10:46→20:55)
[2017-06-27] MEDS: LORATADINE 10 MG TABLET PO SCH (10:46)
[2017-06-27] MEDS: SERTRALINE HCL 50 MG TABLET PO SCH (10:47)
[2017-06-27] MEDS: MYCOPHENOLATE MOFETIL 250 MG CAPSULE PO SCH ×2 (10:47→14:16)
[2017-06-27] MEDS: ASPIRIN 81 MG EC TAB PO SCH (10:48)
[2017-06-27] MEDS: FUROSEMIDE 20 MG TABLET PO SCH ×2 (10:48→20:56)
[2017-06-27] MEDS: MELOXICAM 7.5 MG TABLET PO SCH ×2 (10:49→20:55)
[2017-06-27] MEDS: PREDNISONE 10 MG TABLET PO SCH (10:49)
[2017-06-27] MEDS: PANTOPRAZOLE SODIUM 40 MG TABLET.DR PO SCH (10:50)
[2017-06-27] MEDS: REPAGLINIDE 1 MG TAB PO SCH ×3 (10:50→17:10)
[2017-06-27] MEDS: FERROUS SULFATE 325 MG TABLET.DR PO SCH (10:50)
[2017-06-27] MEDS: FOLIC ACID 1 MG TABLET PO SCH (10:50)
[2017-06-27] MEDS: LOSARTAN 100 MG TABLET PO SCH (10:50)
[2017-06-27] MEDS: LIDOCAINE HCL 5% OINT 36GM TUBE TP SCH ×3 (10:51→20:56)
[2017-06-27] MEDS: INSULIN GLARGINE 100 UNITS/ML 10 ML VIAL SQ SCH (11:05)
[2017-06-27 11:34] VITALS: BP 121/95
[2017-06-27] MEDS: FENTANYL 50 MCG/HR PATCH TD SCH (14:21)
[2017-06-27] MEDS: HYDROCHLOROTHIAZIDE 25 MG TABLET PO SCH (14:37)
[2017-06-27] MEDS: HYDROMORPHONE HCL 2 MG/ML VIAL IVP PRN (14:39)
[2017-06-27 16:01] VITALS: BP 113/67
[2017-06-27 19:35] VITALS: BP 108/61
[2017-06-27] MEDS: ROPINIROLE HCL 1 MG TABLET PO SCH (20:55)
[2017-06-27] MEDS: TEMAZEPAM 30 MG CAP PO SCH (20:56)
[2017-06-27] MEDS ORDERED: INSULIN HUMULIN R 100 UNIT/ML 3ML SQ STA (21:39)
[2017-06-27] MEDS: INSULIN HUMULIN R 100 UNIT/ML 3ML IV SCH (21:50)
[2017-06-27 23:43] VITALS: BP 137/76
[2017-06-28] MEDS: HYDROMORPHONE HCL 2 MG/ML VIAL IVP PRN (00:31)
[2017-06-28] MEDS: POTASSIUM CHLORIDE 20 MEQ ERTAB PO SCH ×5 (00:31→23:04)
[2017-06-28] MEDS: ALBUTEROL SULFATE 0.083% 2.5 MG/3 ML INH IH SCH ×6 (02:50→22:41)
[2017-06-28 04:25] VITALS: BP 144/75
[2017-06-28] MEDS: LEVOTHYROXINE 100 MCG TABLET PO SCH (06:04)
[2017-06-28] MEDS: MEROPENEM 1 GM VIAL IVP SCH ×3 (06:04→23:02)
[2017-06-28] MEDS: LEVOTHYROXINE 75 MCG TABLET PO SCH (06:04)
[2017-06-28] MEDS: INSULIN HUMULIN R 100 UNIT/ML 3ML SQ SCH ×4 (06:09→23:28)
[2017-06-28 08:24] VITALS: BP 144/74
[2017-06-28] MEDS: METOPROLOL TARTRATE 50 MG TAB PO SCH ×2 (09:00→23:03)
[2017-06-28] MEDS: ENOXAPARIN SODIUM 40 MG/0.4 ML SYRINGE SQ SCH (09:56)
[2017-06-28] MEDS: METHYLPREDNISOLONE SOD SUCC 40MG/ML 1ML IVP SCH ×2 (10:00→23:02)
[2017-06-28] MEDS: MYCOPHENOLATE MOFETIL 250 MG CAPSULE PO SCH ×2 (10:05→16:29)
[2017-06-28] MEDS: SERTRALINE HCL 50 MG TABLET PO SCH (10:36)
[2017-06-28] MEDS: LORATADINE 10 MG TABLET PO SCH (10:37)
[2017-06-28] MEDS: PREGABALIN 100 MG CAPSULE PO SCH ×3 (10:37→16:44)
[2017-06-28] MEDS: PANTOPRAZOLE SODIUM 40 MG TABLET.DR PO SCH (10:38)
[2017-06-28] MEDS: FUROSEMIDE 20 MG TABLET PO SCH ×2 (10:38→23:02)
[2017-06-28] MEDS: PREDNISONE 10 MG TABLET PO SCH (10:38)
[2017-06-28] MEDS: FOLIC ACID 1 MG TABLET PO SCH (10:38)
[2017-06-28] MEDS: LOSARTAN 100 MG TABLET PO SCH (10:38)
[2017-06-28] MEDS: MELOXICAM 7.5 MG TABLET PO SCH ×2 (10:39→23:03)
[2017-06-28] MEDS: ASPIRIN 81 MG EC TAB PO SCH (10:39)
[2017-06-28] MEDS: HYDROCHLOROTHIAZIDE 25 MG TABLET PO SCH (10:40)
[2017-06-28] MEDS: FERROUS SULFATE 325 MG TABLET.DR PO SCH (10:40)
[2017-06-28] MEDS: INSULIN GLARGINE 100 UNITS/ML 10 ML VIAL SQ SCH (10:43)
[2017-06-28] MEDS: LIDOCAINE HCL 5% OINT 36GM TUBE TP SCH ×3 (10:45→23:04)
[2017-06-28 11:00] VITALS: BP 127/74
[2017-06-28] MEDS ORDERED: INSULIN GLARGINE 100 UNITS/ML 10 ML VIAL SQ ONE (11:00)
[2017-06-28] MEDS: REPAGLINIDE 1 MG TAB PO SCH ×2 (11:04→16:44)
[2017-06-28 19:00] VITALS: BP 107/69
[2017-06-28] MEDS: TEMAZEPAM 30 MG CAP PO SCH (23:03)
[2017-06-28] MEDS: ROPINIROLE HCL 1 MG TABLET PO SCH (23:03)
[2017-06-29] VITALS: BP 113/67
[2017-06-29] MEDS: ALBUTEROL SULFATE 0.083% 2.5 MG/3 ML INH IH SCH ×4 (01:50→13:39)
[2017-06-29 04:00] VITALS: BP 126/71
[2017-06-29] MEDS: MEROPENEM 1 GM VIAL IVP SCH ×2 (06:05→14:31)
[2017-06-29] MEDS: REPAGLINIDE 1 MG TAB PO SCH ×2 (06:05→10:40)
[2017-06-29] MEDS: LEVOTHYROXINE 100 MCG TABLET PO SCH (06:06)
[2017-06-29] MEDS: POTASSIUM CHLORIDE 20 MEQ ERTAB PO SCH ×2 (06:07→12:41)
[2017-06-29] MEDS: LEVOTHYROXINE 75 MCG TABLET PO SCH (06:08)
[2017-06-29 06:20] LABS: HEMATOCRIT 32.5 % (36-48); MEAN CORPUSCULAR HEMOGLOBIN 29.2 pg (27.0-33.0); MEAN CORPUSCULAR HGB CONC 34.4 g/dL (32.0-36.0); PLATELET COUNT (AUTO) 204 K/uL (130-400); RED BLOOD CELL COUNT(AUTO) 3.82 MIL/uL (4.00-5.50); WHITE BLOOD COUNT (AUTO) 5.4 K/uL (4.8-10.8)
[2017-06-29 06:30] LABS: CREATININE 1.1 mg/dL (0.5-1.5); POTASSIUM 3.9 mmol/L (3.5-5.1)
[2017-06-29] MEDS: INSULIN HUMULIN R 100 UNIT/ML 3ML SQ SCH ×2 (07:13→12:48)
[2017-06-29 08:00] VITALS: BP 131/83
[2017-06-29] MEDS ORDERED: METHYLPREDNISOLONE SOD SUCC 40MG/ML 1ML IVP SCH (09:00)
[2017-06-29] MEDS: LIDOCAINE HCL 5% OINT 36GM TUBE TP SCH ×2 (09:00→14:38)
[2017-06-29] MEDS ORDERED: INSULIN GLARGINE 100 UNITS/ML 10 ML VIAL SQ SCH (09:00)
[2017-06-29] MEDS: SERTRALINE HCL 50 MG TABLET PO SCH (10:38)
[2017-06-29] MEDS: FUROSEMIDE 20 MG TABLET PO SCH (10:38)
[2017-06-29] MEDS: MYCOPHENOLATE MOFETIL 250 MG CAPSULE PO SCH ×2 (10:39→14:32)
[2017-06-29] MEDS: HYDROCHLOROTHIAZIDE 25 MG TABLET PO SCH (10:39)
[2017-06-29] MEDS: PREDNISONE 10 MG TABLET PO SCH (10:39)
[2017-06-29] MEDS: FERROUS SULFATE 325 MG TABLET.DR PO SCH (10:39)
[2017-06-29] MEDS: PREGABALIN 100 MG CAPSULE PO SCH ×2 (10:39→14:31)
[2017-06-29] MEDS: LOSARTAN 100 MG TABLET PO SCH (10:39)
[2017-06-29] MEDS: MELOXICAM 7.5 MG TABLET PO SCH (10:40)
[2017-06-29] MEDS: FOLIC ACID 1 MG TABLET PO SCH (10:40)
[2017-06-29] MEDS: METOPROLOL TARTRATE 50 MG TAB PO SCH (10:40)
[2017-06-29] MEDS: ASPIRIN 81 MG EC TAB PO SCH (10:40)
[2017-06-29] MEDS: LORATADINE 10 MG TABLET PO SCH (10:40)
[2017-06-29] MEDS: PANTOPRAZOLE SODIUM 40 MG TABLET.DR PO SCH (10:40)
[2017-06-29] MEDS: ENOXAPARIN SODIUM 40 MG/0.4 ML SYRINGE SQ SCH (10:41)
[2017-06-29] MEDS: HYDROMORPHONE HCL 2 MG/ML VIAL IVP PRN (10:42)
[2017-06-29 11:00] VITALS: BP 129/62
[2017-06-29] MEDS ORDERED: HEPARIN SODIUM/PF 100UNIT/ML 5ML SYRINGE IV SCH (15:00)
[2017-07-01] MEDS ORDERED: METHOTREXATE SODIUM 2.5 MG TABLET PO SCH (09:00)
== END 2017-06-29 21:31 | disposition home or self-care (01) | DRG 190 ==
LOC: EDH 16:59 → EDHIP 20:08 → 3AH 06-24 00:08
PROVIDERS: ADMIT Internal Medicine Hematology & Oncology; ATTEND Internal Medicine Hematology & Oncology
DX: J44.0 Chronic obstructive pulmonary disease with (acute) lower respiratory infection (principal); J18.9 Pneumonia, unspecified organism; M32.9 Systemic lupus erythematosus, unspecified; E11.65 Type 2 diabetes mellitus with hyperglycemia; J44.1 Chronic obstructive pulmonary disease with (acute) exacerbation; G89.4 Chronic pain syndrome; I11.9 Hypertensive heart disease without heart failure; I25.10 Atherosclerotic heart disease of native coronary artery without angina pectoris; Z90.710 Acquired absence of both cervix and uterus; Z90.49 Acquired absence of other specified parts of digestive tract
CPT/HCPCS: 36415; 71045; 71046; 71275; 80048; 80053; 82947; 82948; 83880; 85025; 85027; 87804; 93005; 94640; 94664; 99291; A4218; J1170; J1642; J1650; J1815; J2185; J2270; J2405; J2920; J2930; J7030; J7512; J7517; Q9967

== ENCOUNTER 2018-01-19 11:06 | Inpatient (IN) | payer MEDICARE ==
[~2018-01-19] VITALS: Ht 165.1 cm; Wt 98.4 kg
[~2018-01-19 11:06] MED LIST changes: +ALPR1TAB2 PO; +FURO40TA7 PO; +INSU100I21 SQ; +LORTAB; -PROZ5L PO; +VALS160T2 PO; -VALS160T28 PO; +VALS160T29 PO
[2018-01-19 11:50] VITALS: BP 144/63
[2018-01-19 12:33] LABS: HEMATOCRIT 33.7 % (36-48); MEAN CORPUSCULAR HEMOGLOBIN 27.4 pg (27.0-33.0); MEAN CORPUSCULAR HGB CONC 32.5 g/dL (32.0-36.0); MEAN CORPUSCULAR VOLUME 84.4 fL (79-99); NUCLEATED RED BLOOD CELLS 0.1 % (0.0-0.19); PLATELET COUNT (AUTO) 126 K/uL (130-400); RED BLOOD CELL COUNT(AUTO) 3.99 MIL/uL (4.00-5.50); WHITE BLOOD COUNT (AUTO) 3.3 K/uL (4.8-10.8)
[2018-01-19] MEDS ORDERED: ACETAMINOPHEN 325 MG TAB PO PRN (12:45)
[2018-01-19] MEDS ORDERED: SODIUM CHLORIDE 0.9% 1000ML 1,000 ML IV SCH (12:45)
[2018-01-19 12:53] LABS: ALBUMIN 2.6 g/dL (3.5-5.0); BILIRUBIN,TOTAL 0.3 mg/dL (0.2-1.0); POTASSIUM 3.6 mmol/L (3.5-5.1)
[2018-01-19] MEDS: IPRATROPIUM/ALBUTEROL SULFATE 3 ML SOLUTION IH SCH ×3 (12:58→21:44)
[2018-01-19] MEDS ORDERED: SODIUM CHLORIDE 3% FOR INHALATION 4 ML/AMP VIAL.NEB IH ONE ×2 (13:53→21:50)
[2018-01-19] MEDS: ZOSYN 3.375GM+NS 50ML 50 ML IV SCH ×2 (14:08→21:57)
[2018-01-19] MEDS: METHYLPREDNISOLONE SOD SUCC 125MG/2ML VIAL IVP SCH ×2 (14:08→19:03)
[2018-01-19] MEDS: GUAIFENESIN-DM 200/20 MG 10 ML PO PRN (14:08)
[2018-01-19] MEDS: HYDROCODONE/ACETAMINOPHEN 10/325 MG TAB PO PRN ×2 (14:53→19:03)
[2018-01-19 16:00] VITALS: BP 157/76
[2018-01-19] MEDS: INSULIN HUMULIN R 100 UNIT/ML 3ML SQ SCH ×2 (19:16→21:29)
[2018-01-19 19:46] VITALS: BP 148/83
[2018-01-19] MEDS: INSULIN GLARGINE 100 UNITS/ML 10 ML VIAL SQ SCH (21:19)
[2018-01-19] MEDS: PROMETHAZINE/CODEINE 6.25-10MG/5ML CUP PO PRN (21:38)
[2018-01-19 23:45] VITALS: BP 141/94
[2018-01-20] VITALS (15 sets, daily range): BP systolic 107–190; BP diastolic 54–107
[2018-01-20] MEDS: IPRATROPIUM/ALBUTEROL SULFATE 3 ML SOLUTION IH SCH ×6 (01:32→21:30)
[2018-01-20] MEDS: PROMETHAZINE/CODEINE 6.25-10MG/5ML CUP PO PRN (04:15)
[2018-01-20] MEDS: METHYLPREDNISOLONE SOD SUCC 125MG/2ML VIAL IVP SCH (04:15)
[2018-01-20] MEDS: HYDROMORPHONE 1 MG/1 ML AMP IVP PRN ×3 (04:28→20:31)
[2018-01-20] MEDS: ZOSYN 3.375GM+NS 50ML 50 ML IV SCH ×3 (05:10→20:22)
[2018-01-20] MEDS: INSULIN HUMULIN R 100 UNIT/ML 3ML SQ SCH ×4 (06:55→19:52)
[2018-01-20] MEDS: INSULIN GLARGINE 100 UNITS/ML 10 ML VIAL SQ SCH ×2 (06:56→20:30)
[2018-01-20] MEDS ORDERED: MORPHINE SULFATE 2 MG/ML 1ML SYG IVP PRN (08:30)
[2018-01-20] MEDS: AZITHROMYCIN 500MG+NS 250ML 250 ML IV SCH (09:53)
[2018-01-20] MEDS ORDERED: INSULIN HUMULIN R 100 UNIT/ML 3ML SQ SCH (11:30)
[2018-01-20] MEDS ORDERED: METHYLPREDNISOLONE SOD SUCC 125MG/2ML VIAL IVP SCH (12:45)
[2018-01-20] MEDS ORDERED: SODIUM CHLORIDE 0.9% 1000ML 1,000 ML IV SCH ×2 (14:30→15:30)
[2018-01-20] MEDS ORDERED: PHARMACY COMMUNICATION MISC SCH (18:15)
[2018-01-20] MEDS ORDERED: INSULIN REGULAR, HUMAN 3ML 100 UNIT in SODIUM CHLORIDE 0.9% 99 ML IV SCH ×2 (18:23)
[2018-01-20] MEDS: SODIUM CHLORIDE 0.9% 1000ML 1,000 ML IV SCH ×2 (18:55→20:41)
[2018-01-20] MEDS ORDERED: POTASSIUM CHLORIDE 20 MEQ ERTAB PO PRN (20:15)
[2018-01-20] MEDS ORDERED: GLUCAGON 1MG KIT 1 MG ML IM PRN (20:15)
[2018-01-20] MEDS ORDERED: LIDOCAINE HCL-MPF 1% 2ML VIAL IVP PRN (20:15)
[2018-01-20] MEDS ORDERED: BENZONATATE 100 MG CAPSULE PO PRN (20:15)
[2018-01-20] MEDS ORDERED: DEXTROSE 50%-WATER 50 ML DISP.SYRIN IV PRN (20:15)
[2018-01-20] MEDS ORDERED: POTASSIUM CHLORIDE 10% ELIXIR 20 MEQ/15 ML UDCUP ONE (20:20)
[2018-01-20] MEDS: GUAIFENESIN-DM 200/20 MG 10 ML PO PRN (20:24)
[2018-01-20] MEDS: OSELTAMIVIR PHOSPHATE 75 MG CAP PO SCH (20:24)
[2018-01-20] MEDS: ROPINIROLE HCL 1 MG TABLET PO SCH (20:48)
[2018-01-20] MEDS: POTASSIUM CHLORIDE 10% ELIXIR 20 MEQ/15 ML UDCUP PO PRN (23:16)
[2018-01-21] VITALS (13 sets, daily range): BP systolic 123–150; BP diastolic 62–93
[2018-01-21] MEDS: MAGNESIUM 2GM PREMIX 50ML 50 ML IV PRN (00:25)
[2018-01-21] MEDS: IPRATROPIUM/ALBUTEROL SULFATE 3 ML SOLUTION IH SCH ×6 (01:51→22:44)
[2018-01-21] MEDS: SODIUM CHLORIDE 0.9% 1000ML 1,000 ML IV SCH ×3 (02:28→13:22)
[2018-01-21] MEDS: ZOSYN 3.375GM+NS 50ML 50 ML IV SCH ×3 (04:13→20:54)
[2018-01-21 04:40] LABS: MAGNESIUM 2.3 mg/dL (1.80-2.40); POTASSIUM 3.4 mmol/L (3.5-5.1)
[2018-01-21] MEDS: INSULIN HUMULIN R 100 UNIT/ML 3ML SQ SCH ×4 (05:57→21:18)
[2018-01-21] MEDS: POTASSIUM CHLORIDE 10% ELIXIR 20 MEQ/15 ML UDCUP PO PRN ×3 (06:21→12:55)
[2018-01-21] MEDS: OSELTAMIVIR PHOSPHATE 75 MG CAP PO SCH ×2 (08:06→20:54)
[2018-01-21] MEDS: HYDROMORPHONE 1 MG/1 ML AMP IVP PRN ×2 (08:06→19:16)
[2018-01-21] MEDS: AZITHROMYCIN 500MG+NS 250ML 250 ML IV SCH (08:06)
[2018-01-21] MEDS: INSULIN GLARGINE 100 UNITS/ML 10 ML VIAL SQ SCH ×2 (08:08→21:01)
[2018-01-21 08:44] LABS: BASOPHILS % (AUTO) 0.5 % (0.0-5.0); EOSINOPHILS % (AUTO) 0.2 % (0.0-8.0); HEMATOCRIT 34.1 % (36-48); LYMPHOCYTES % (AUTO) 13.4 % (21.0-51.0); MEAN CORPUSCULAR HEMOGLOBIN 27.8 pg (27.0-33.0); MEAN CORPUSCULAR HGB CONC 32.6 g/dL (32.0-36.0); MEAN CORPUSCULAR VOLUME 85.4 fL (79-99); MONOCYTES % (AUTO) 5.2 % (3.0-13.0); NEUTROPHILS % (AUTO) 80.7 % (40.0-77.0); PLATELET COUNT (AUTO) 159 K/uL (130-400); RED CELL DISTRIBUTION WIDTH 14.3 % (11.0-15.5); WHITE BLOOD COUNT (AUTO) 7.6 K/uL (4.8-10.8)
[2018-01-21 08:49] LABS: CREATININE 0.8 mg/dL (0.5-1.5)
[2018-01-21] MEDS: ROPINIROLE HCL 1 MG TABLET PO SCH (20:54)
[2018-01-21] MEDS: MYCOPHENOLATE MOFETIL 250 MG CAPSULE PO SCH (20:54)
[2018-01-21] MEDS: GUAIFENESIN-DM 200/20 MG 10 ML PO PRN (20:54)
[2018-01-22 00:36] VITALS: BP 130/78
[2018-01-22] MEDS: HYDROMORPHONE 1 MG/1 ML AMP IVP PRN ×3 (01:23→17:46)
[2018-01-22] MEDS: IPRATROPIUM/ALBUTEROL SULFATE 3 ML SOLUTION IH SCH ×4 (02:30→14:11)
[2018-01-22] MEDS: SODIUM CHLORIDE 0.9% 1000ML 1,000 ML IV SCH ×4 (04:22→21:10)
[2018-01-22 04:40] VITALS: BP 131/82
[2018-01-22] MEDS: ZOSYN 3.375GM+NS 50ML 50 ML IV SCH ×3 (05:09→21:09)
[2018-01-22] MEDS: INSULIN GLARGINE 100 UNITS/ML 10 ML VIAL SQ SCH ×2 (06:50→21:43)
[2018-01-22] MEDS: INSULIN HUMULIN R 100 UNIT/ML 3ML SQ SCH ×4 (06:50→21:42)
[2018-01-22 07:51] VITALS: BP 147/82
[2018-01-22] MEDS: AZITHROMYCIN 500MG+NS 250ML 250 ML IV SCH (08:45)
[2018-01-22] MEDS: MYCOPHENOLATE MOFETIL 250 MG CAPSULE PO SCH ×2 (08:46→21:06)
[2018-01-22] MEDS: OSELTAMIVIR PHOSPHATE 75 MG CAP PO SCH ×2 (08:46→21:06)
[2018-01-22] MEDS: PREDNISONE 10 MG TABLET PO SCH (08:46)
[2018-01-22] MEDS: ENOXAPARIN SODIUM 40 MG/0.4 ML SYRINGE SQ SCH (08:46)
[2018-01-22 11:18] VITALS: BP 128/81
[2018-01-22 16:34] VITALS: BP 135/86
[2018-01-22] MEDS: GUAIFENESIN-DM 200/20 MG 10 ML PO PRN (17:46)
[2018-01-22] MEDS: BUDESONIDE 0.5 MG/2 ML INH IH SCH (18:24)
[2018-01-22] MEDS: ALBUTEROL SULFATE 0.083% 2.5 MG/3 ML INH IH SCH ×2 (18:24→22:01)
[2018-01-22] MEDS ORDERED: BUDESONIDE 0.5 MG/2 ML INH IH ONE (18:26)
[2018-01-22] MEDS: METHYLPREDNISOLONE SOD SUCC 40MG/ML 1ML IVP SCH (19:24)
[2018-01-22 20:16] VITALS: BP 139/72
[2018-01-22] MEDS: ROPINIROLE HCL 1 MG TABLET PO SCH (21:06)
[2018-01-22] MEDS: ACETAMINOPHEN-CODEINE 300/30MG TAB PO PRN (21:10)
[2018-01-23] MEDS: SODIUM CHLORIDE 0.9% 1000ML 1,000 ML IV SCH ×4 (00:15→23:28)
[2018-01-23 00:20] VITALS: BP 122/77
[2018-01-23] MEDS: HYDROMORPHONE 1 MG/1 ML AMP IVP PRN ×2 (00:27→17:11)
[2018-01-23] MEDS: ALBUTEROL SULFATE 0.083% 2.5 MG/3 ML INH IH SCH ×6 (02:13→22:24)
[2018-01-23 04:16] VITALS: BP 108/68
[2018-01-23] MEDS: ZOSYN 3.375GM+NS 50ML 50 ML IV SCH ×3 (05:05→20:20)
[2018-01-23 05:59] LABS: HEMATOCRIT 32.8 % (36-48); MEAN CORPUSCULAR HEMOGLOBIN 28.1 pg (27.0-33.0); MEAN CORPUSCULAR HGB CONC 33.1 g/dL (32.0-36.0); MEAN CORPUSCULAR VOLUME 84.9 fL (79-99); NUCLEATED RED BLOOD CELLS 0.1 % (0.0-0.19); PLATELET COUNT (AUTO) 113 K/uL (130-400); RED BLOOD CELL COUNT(AUTO) 3.86 MIL/uL (4.00-5.50); RED CELL DISTRIBUTION WIDTH 14.4 % (11.0-15.5); WHITE BLOOD COUNT (AUTO) 3.9 K/uL (4.8-10.8)
[2018-01-23 06:09] LABS: CREATININE 0.7 mg/dL (0.5-1.5)
[2018-01-23 06:14] LABS: POTASSIUM 2.9 mmol/L (3.5-5.1)
[2018-01-23] MEDS: INSULIN HUMULIN R 100 UNIT/ML 3ML SQ SCH ×4 (06:18→20:44)
[2018-01-23] MEDS ORDERED: LIDOCAINE HCL MPF 1% 5ML VIAL ONE (06:28)
[2018-01-23] MEDS: POTASSIUM CHLORIDE 10% ELIXIR 20 MEQ/15 ML UDCUP PO PRN (06:34)
[2018-01-23] MEDS: POTASSIUM CHLORIDE 20MEQ/100ML 100 ML IV PRN ×2 (06:35→10:56)
[2018-01-23] MEDS: INSULIN GLARGINE 100 UNITS/ML 10 ML VIAL SQ SCH ×2 (06:40→20:43)
[2018-01-23] MEDS: BUDESONIDE 0.5 MG/2 ML INH IH SCH ×2 (06:52→18:24)
[2018-01-23 07:49] VITALS: BP 112/90
[2018-01-23] MEDS: AZITHROMYCIN 500MG+NS 250ML 250 ML IV SCH (09:18)
[2018-01-23] MEDS: MYCOPHENOLATE MOFETIL 250 MG CAPSULE PO SCH ×2 (09:19→20:23)
[2018-01-23] MEDS: PREDNISONE 10 MG TABLET PO SCH (09:19)
[2018-01-23] MEDS: ACETAMINOPHEN-CODEINE 300/30MG TAB PO PRN (09:19)
[2018-01-23] MEDS: OSELTAMIVIR PHOSPHATE 75 MG CAP PO SCH ×2 (09:19→20:23)
[2018-01-23] MEDS: ENOXAPARIN SODIUM 40 MG/0.4 ML SYRINGE SQ SCH (09:20)
[2018-01-23 11:27] VITALS: BP 123/65
[2018-01-23] MEDS: METHYLPREDNISOLONE SOD SUCC 40MG/ML 1ML IVP SCH ×2 (14:00→20:54)
[2018-01-23 16:17] VITALS: BP 167/84
[2018-01-23 20:16] VITALS: BP 147/99
[2018-01-23] MEDS: ROPINIROLE HCL 1 MG TABLET PO SCH (20:23)
[2018-01-24 00:25] VITALS: BP 156/80
[2018-01-24] MEDS: ALBUTEROL SULFATE 0.083% 2.5 MG/3 ML INH IH SCH ×6 (02:38→21:40)
[2018-01-24 04:20] VITALS: BP 133/79
[2018-01-24] MEDS: SODIUM CHLORIDE 0.9% 1000ML 1,000 ML IV SCH (04:21)
[2018-01-24] MEDS: ZOSYN 3.375GM+NS 50ML 50 ML IV SCH ×3 (04:21→21:08)
[2018-01-24] MEDS: METHYLPREDNISOLONE SOD SUCC 40MG/ML 1ML IVP SCH ×4 (05:27→23:21)
[2018-01-24] MEDS: INSULIN HUMULIN R 100 UNIT/ML 3ML SQ SCH ×4 (05:57→21:15)
[2018-01-24] MEDS: BUDESONIDE 0.5 MG/2 ML INH IH SCH ×2 (07:03→19:03)
[2018-01-24] MEDS: INSULIN GLARGINE 100 UNITS/ML 10 ML VIAL SQ SCH ×2 (07:30→21:16)
[2018-01-24 08:06] VITALS: BP 128/75
[2018-01-24] MEDS: OSELTAMIVIR PHOSPHATE 75 MG CAP PO SCH ×2 (08:38→21:03)
[2018-01-24] MEDS: MYCOPHENOLATE MOFETIL 250 MG CAPSULE PO SCH ×2 (08:38→21:04)
[2018-01-24] MEDS: PREDNISONE 10 MG TABLET PO SCH (08:38)
[2018-01-24] MEDS: ENOXAPARIN SODIUM 40 MG/0.4 ML SYRINGE SQ SCH (08:38)
[2018-01-24] MEDS: AZITHROMYCIN 500MG+NS 250ML 250 ML IV SCH (08:40)
[2018-01-24 11:57] VITALS: BP 130/90
[2018-01-24] MEDS ORDERED: CLONIDINE HCL 0.1 MG TABLET PO SCH (17:00)
[2018-01-24 17:13] VITALS: BP 171/101
[2018-01-24] MEDS ORDERED: QUET50TA55 PO (20:00)
[2018-01-24 20:09] VITALS: BP 158/90
[2018-01-24] MEDS ORDERED: QUETIAPINE FUMARATE 25 MG TAB PO SCH (21:00)
[2018-01-24] MEDS: LOSARTAN 50 MG TABLET PO SCH (21:03)
[2018-01-24] MEDS: ROPINIROLE HCL 1 MG TABLET PO SCH (21:04)
[2018-01-24] MEDS: HYDROMORPHONE 1 MG/1 ML AMP IVP PRN (21:42)
[2018-01-25 00:32] VITALS: BP 130/83
[2018-01-25] MEDS: ALBUTEROL SULFATE 0.083% 2.5 MG/3 ML INH IH SCH ×5 (01:39→18:00)
[2018-01-25 04:49] VITALS: BP 153/92
[2018-01-25] MEDS: ZOSYN 3.375GM+NS 50ML 50 ML IV SCH ×2 (05:12→12:06)
[2018-01-25] MEDS: METHYLPREDNISOLONE SOD SUCC 40MG/ML 1ML IVP SCH ×2 (05:12→12:06)
[2018-01-25 05:38] LABS: HEMATOCRIT 36.7 % (36-48); MEAN CORPUSCULAR HEMOGLOBIN 27.4 pg (27.0-33.0); MEAN CORPUSCULAR HGB CONC 32.5 g/dL (32.0-36.0); MEAN CORPUSCULAR VOLUME 84.5 fL (79-99); PLATELET COUNT (AUTO) 134 K/uL (130-400); RED BLOOD CELL COUNT(AUTO) 4.34 MIL/uL (4.00-5.50); RED CELL DISTRIBUTION WIDTH 14.1 % (11.0-15.5); WHITE BLOOD COUNT (AUTO) 2.9 K/uL (4.8-10.8)
[2018-01-25 05:50] LABS: HEMOGLOBIN A1C 12.4 % (4.0-6.0)
[2018-01-25 05:51] LABS: CREATININE 0.9 mg/dL (0.5-1.5); MAGNESIUM 1.5 mg/dL (1.80-2.40); PHOSPHORUS 3.6 mg/dL (2.5-4.9); POTASSIUM 4.2 mmol/L (3.5-5.1)
[2018-01-25 05:55] LABS: B-TYPE NATRIURETIC PEPTIDE 281 pg/mL (0-100)
[2018-01-25] MEDS: INSULIN HUMULIN R 100 UNIT/ML 3ML SQ SCH ×3 (06:03→17:53)
[2018-01-25] MEDS: INSULIN GLARGINE 100 UNITS/ML 10 ML VIAL SQ SCH (06:04)
[2018-01-25 06:19] LABS: BAND NEUTROPHILS % (MANUAL) 1 % (0-2); EOSINOPHILS % (MANUAL) 1 % (1-6); LYMPHOCYTES % (MANUAL) 15 % (22-44); SEGMENTED NEUTROPHILS % 83 % (40-70)
[2018-01-25 06:20] LABS: MAN.DIFF COMMENT-IMPRESSION MANUAL DIFFERENTIAL
[2018-01-25 06:21] LABS: PLATELET MORPHOLOGY COMMENT DECREASED
[2018-01-25] MEDS ORDERED: LEVOTHYROXINE 100 MCG TABLET PO SCH (06:30)
[2018-01-25] MEDS ORDERED: LEVOTHYROXINE 75 MCG TABLET PO SCH (06:30)
[2018-01-25] MEDS: BUDESONIDE 0.5 MG/2 ML INH IH SCH ×2 (06:50→18:29)
[2018-01-25 08:00] VITALS: BP 132/91
[2018-01-25] MEDS: MYCOPHENOLATE MOFETIL 250 MG CAPSULE PO SCH (09:48)
[2018-01-25] MEDS: LOSARTAN 50 MG TABLET PO SCH (09:48)
[2018-01-25] MEDS: PREDNISONE 10 MG TABLET PO SCH (09:48)
[2018-01-25] MEDS: OSELTAMIVIR PHOSPHATE 75 MG CAP PO SCH (09:48)
[2018-01-25] MEDS: AZITHROMYCIN 500MG+NS 250ML 250 ML IV SCH (09:49)
[2018-01-25] MEDS: ENOXAPARIN SODIUM 40 MG/0.4 ML SYRINGE SQ SCH (09:49)
[2018-01-25] MEDS: GUAIFENESIN-DM 200/20 MG 10 ML PO PRN (09:52)
[2018-01-25] MEDS: MAGNESIUM 2GM PREMIX 50ML 50 ML IV PRN (09:53)
[2018-01-25] MEDS: HYDROMORPHONE 1 MG/1 ML AMP IVP PRN (09:53)
[2018-01-25 11:00] VITALS: BP 130/84
[2018-01-25] MEDS ORDERED: INSULIN NPH 100 UNIT/ML 3ML SQ SCH (12:00)
[2018-01-25 16:00] VITALS: BP 134/80
[2018-01-26] MEDS ORDERED: PREDNISONE 20 MG TABLET PO SCH (09:00)
[2018-01-28] MEDS ORDERED: METHOTREXATE SODIUM 2.5 MG TABLET PO SCH (09:00)
== END 2018-01-25 19:50 | disposition home or self-care (01) | DRG 637 ==
LOC: EDH 11:06 → EDHIP 11:07 → 3DH 11:49 → 2CH 01-20 18:39 → 4BH 01-21 17:36
PROVIDERS: ADMIT Internal Medicine Hematology & Oncology; ATTEND Internal Medicine Hematology & Oncology
DX: E11.00 Type 2 diabetes mellitus with hyperosmolarity without nonketotic hyperglycemic-hyperosmolar coma (NKHHC) (principal); J96.21 Acute and chronic respiratory failure with hypoxia; J10.00 Influenza due to other identified influenza virus with unspecified type of pneumonia; J44.1 Chronic obstructive pulmonary disease with (acute) exacerbation; J45.901 Unspecified asthma with (acute) exacerbation; D61.818 Other pancytopenia; E72.51 Non-ketotic hyperglycinemia; J44.0 Chronic obstructive pulmonary disease with (acute) lower respiratory infection; E11.65 Type 2 diabetes mellitus with hyperglycemia; T38.0X5A Adverse effect of glucocorticoids and synthetic analogues, initial encounter; M32.9 Systemic lupus erythematosus, unspecified; M06.9 Rheumatoid arthritis, unspecified; M79.7 Fibromyalgia; N28.9 Disorder of kidney and ureter, unspecified; Z99.81 Dependence on supplemental oxygen; J10.1 Influenza due to other identified influenza virus with other respiratory manifestations; E66.01 Morbid (severe) obesity due to excess calories; G47.33 Obstructive sleep apnea (adult) (pediatric); I11.9 Hypertensive heart disease without heart failure; G89.29 Other chronic pain; I25.10 Atherosclerotic heart disease of native coronary artery without angina pectoris; J20.9 Acute bronchitis, unspecified; J98.4 Other disorders of lung; E03.9 Hypothyroidism, unspecified; D72.819 Decreased white blood cell count, unspecified; Z68.36 Body mass index [BMI] 36.0-36.9, adult; Z79.4 Long term (current) use of insulin; Z90.710 Acquired absence of both cervix and uterus; Z71.89 Other specified counseling; Y92.89 Other specified places as the place of occurrence of the external cause; Z91.19 Patient's noncompliance with other medical treatment and regimen; Z98.49 Cataract extraction status, unspecified eye; Z88.8 Allergy status to other drugs, medicaments and biological substances; Z82.49 Family history of ischemic heart disease and other diseases of the circulatory system
CPT/HCPCS: 36415; 71045; 71046; 80048; 80053; 82947; 82948; 83036; 83735; 83880; 84100; 84132; 85025; 85027; 87804; 94640; 94664; 94760; J0456; J1170; J1650; J1815; J2543; J2920; J2930; J3475; J3480; J3490; J7030; J7512; J7517; Q0169

== ENCOUNTER 2018-06-22 15:02 | Emergency (ER) | payer MEDICARE ==
[~2018-06-22 15:02] MED LIST changes: +QUET50TA55 PO
[2018-06-22] MEDS ORDERED: BENZONATATE 100 MG CAPSULE PO ONE (16:26)
== END 2018-06-22 16:38 | disposition home or self-care (01) ==
LOC: EDH 15:02
DX: H10.021 Other mucopurulent conjunctivitis, right eye (principal); B37.3 Candidiasis of vulva and vagina; R05 Cough; R50.9 Fever, unspecified; I10 Essential (primary) hypertension; E11.9 Type 2 diabetes mellitus without complications; J44.9 Chronic obstructive pulmonary disease, unspecified; I25.10 Atherosclerotic heart disease of native coronary artery without angina pectoris; Z90.710 Acquired absence of both cervix and uterus; Z90.89 Acquired absence of other organs; Z88.8 Allergy status to other drugs, medicaments and biological substances; Z98.890 Other specified postprocedural states
CPT/HCPCS: 71045

== ENCOUNTER 2019-02-18 01:14 | Emergency (ER) | payer MEDICARE ==
[~2019-02-18 01:14] MED LIST changes: +ALBUHFA IH; -ALPR1TAB2 PO; +DULO30CA2 PO; -FENT50PAT TD; +FLUT1AER IH; -FURO20TA4 PO; +FURO40TA5 PO; -FURO40TA7 PO; -INSU100V12 SQ; +LEVO100T12 PO; -LEVO175T20 PO; -LORTAB; -PRED10TA3 PO; -QUET50TA55 PO; -SERT100T PO; -TRAM50TA4 PO; -VALS160T29 PO
[2019-02-18 02:24] LABS: BASOPHILS % (AUTO) 0.7 % (0.0-5.0); EOSINOPHILS % (AUTO) 1.6 % (0.0-8.0); HEMATOCRIT 41.4 % (36-48); LYMPHOCYTES % (AUTO) 30.3 % (21.0-51.0); MEAN CORPUSCULAR HEMOGLOBIN 28.3 pg (27.0-33.0); MEAN CORPUSCULAR VOLUME 85.8 fL (79-99); MONOCYTES % (AUTO) 12.2 % (3.0-13.0); NEUTROPHILS % (AUTO) 55.2 % (40.0-77.0); NUCLEATED RED BLOOD CELLS 0.3 % (0.0-0.19); PLATELET COUNT (AUTO) 132 K/uL (130-400); RED BLOOD CELL COUNT(AUTO) 4.83 MIL/uL (4.00-5.50); RED CELL DISTRIBUTION WIDTH 12.9 % (11.0-15.5); WHITE BLOOD COUNT (AUTO) 7.5 K/uL (4.8-10.8)
[2019-02-18] MEDS ORDERED: LIDOCAINE HCL 2% JELLY 5 ML ONE (02:45)
[2019-02-18 03:50] LABS: APPEARANCE,URINE Cloudy (CLEAR); BILIRUBIN,URINE Negative (NEGATIVE); COLOR,URINE Yellow (YELLOW); GLUCOSE, URINE (UA) >=1000 mg/dL (NEGATIVE); KETONES,URINE Negative (NEGATIVE); LEUKOCYTE ESTERASE ,URINE Negative (NEGATIVE); NITRATE,URINE Negative (NEGATIVE); OCCULT BLOOD,URINE Large (NEGATIVE); PH,URINE 5.5 (5.0-8.0); PROTEIN,URINE >=1000 mg/dL (NEGATIVE)
[2019-02-18 03:55] LABS: ALANINE AMINOTRANSFERASE 18 U/L (12-78); ALBUMIN 2.7 g/dL (3.5-5.0); ASPARTATE AMINOTRANSFERASE 16 U/L (10-37); BILIRUBIN,TOTAL 0.6 mg/dL (0.2-1.0); CARBON DIOXIDE 25 mmol/L (21-32); CHLORIDE 101 mmol/L (101-111); CREATINE KINASE, TOTAL 40 U/L (21-232); CREATININE 1.2 mg/dL (0.5-1.5); GLOMERULAR FILTR. RATE CALC 51 mL/min (>60); INR 0.91 (0.85-1.15); MYOGLOBIN 26 ng/mL (10-92); PARTIAL THROMBOPLASTIN TIME 26.4 SEC (26.3-35.5); POTASSIUM 3.2 mmol/L (3.5-5.1); PROTHROMBIN TIME 9.6 SEC (9.6-11.6); SODIUM SERUM 135 mmol/L (136-145); TOTAL PROTEIN, SERUM 6.1 g/dL (6.0-8.3); TROPONIN I < 0.04 ng/mL (0.00-0.06); UREA NITROGEN, BLOOD 23 mg/dL (7-18)
[2019-02-18 04:01] LABS: GLUCOSE,RANDOM 416 mg/dL (70-105)
[2019-02-18 04:04] LABS: BACTERIA,URINE None Seen /HPF (None Seen); SQUAMOUS EPITHELIAL CELL,UR Few /HPF (0-2); WBC,URINE 0-1 /HPF (0-1); YEAST,URINE BUDDING Many /HPF (None Seen)
[2019-02-18] MEDS ORDERED: POTASSIUM BICARB/CIT AC 25 MEQ TABLET.EFF ONE (04:22)
[2019-02-18] MEDS ORDERED: SODIUM CHLORIDE 0.9% 1000ML 1,000 ML IV ONE (04:23)
[2019-02-18 04:26] LABS: ABG HCO3 24.4 mmol/L (21.0-28.0); ABG PCO2 39 mmHg (32-45)
[2019-02-18] MEDS ORDERED: INSULIN HUMULIN R 100 UNIT/ML 3ML ONE (05:31)
== END 2019-02-18 05:51 | disposition home or self-care (01) ==
LOC: EDH 01:14
DX: E11.65 Type 2 diabetes mellitus with hyperglycemia (principal); R42 Dizziness and giddiness; E86.0 Dehydration; B37.49 Other urogenital candidiasis; J44.9 Chronic obstructive pulmonary disease, unspecified; I10 Essential (primary) hypertension; L93.0 Discoid lupus erythematosus; I25.10 Atherosclerotic heart disease of native coronary artery without angina pectoris; M81.0 Age-related osteoporosis without current pathological fracture; M06.9 Rheumatoid arthritis, unspecified; Z88.8 Allergy status to other drugs, medicaments and biological substances
CPT/HCPCS: 36415; 36600; 71046; 80053; 81001; 82010; 82550; 82803; 82948; 83605; 83874; 83880; 84145; 84484; 85025; 85610; 85730; 87040 ×2; 87077 ×2; 87088; 87186 ×2; 93005; 96361; 96374; 99285; J1815; J7030

== ENCOUNTER 2019-03-19 18:33 | Emergency (ER) | payer MEDICARE ==
[2019-03-19 19:00] LABS: APPEARANCE,URINE Cloudy (CLEAR); BILIRUBIN,URINE Negative (NEGATIVE); COLOR,URINE Dark Yellow (YELLOW); GLUCOSE, URINE (UA) >=1000 mg/dL (NEGATIVE); KETONES,URINE Negative (NEGATIVE); LEUKOCYTE ESTERASE ,URINE Negative (NEGATIVE); NITRATE,URINE Negative (NEGATIVE); OCCULT BLOOD,URINE Large (NEGATIVE); PROTEIN,URINE >=1000 mg/dL (NEGATIVE)
[2019-03-19 19:17] LABS: BACTERIA,URINE Moderate /HPF (None Seen); MUCUS,URINE Moderate LPF (None Seen)
[2019-03-19] MEDS ORDERED: FUROSEMIDE 10 MG/ML 4ML VIAL ONE (19:25)
[2019-03-19] MEDS ORDERED: ONDANSETRON HCL 4 MG/2 ML VIAL ONE (19:25)
[2019-03-19 19:57] LABS: ABG BASE EXCESS 0.2 mmol/L (-2.0-3.0); ABG HCO3 25.7 mmol/L (21.0-28.0); ABG PCO2 44 mmHg (32-45)
[2019-03-19 20:20] LABS: BASOPHILS % (AUTO) 1.3 % (0.0-5.0); EOSINOPHILS % (AUTO) 1.8 % (0.0-8.0); HEMATOCRIT 33.5 % (36-48); LYMPHOCYTES % (AUTO) 22.8 % (21.0-51.0); MEAN CORPUSCULAR HEMOGLOBIN 28.2 pg (27.0-33.0); MEAN CORPUSCULAR HGB CONC 33.9 g/dL (32.0-36.0); MEAN CORPUSCULAR VOLUME 83.1 fL (79-99); MONOCYTES % (AUTO) 8.8 % (3.0-13.0); NEUTROPHILS % (AUTO) 65.3 % (40.0-77.0); NUCLEATED RED BLOOD CELLS 0.2 % (0.0-0.19); PLATELET COUNT (AUTO) 120 K/uL (130-400); RED BLOOD CELL COUNT(AUTO) 4.03 MIL/uL (4.00-5.50); RED CELL DISTRIBUTION WIDTH 12.9 % (11.0-15.5); WHITE BLOOD COUNT (AUTO) 8.7 K/uL (4.8-10.8)
[2019-03-19 20:33] LABS: INR 0.92 (0.85-1.15); PARTIAL THROMBOPLASTIN TIME 29.2 SEC (26.3-35.5); PROTHROMBIN TIME 9.7 SEC (9.6-11.6)
[2019-03-19 20:34] LABS: BILIRUBIN,DIRECT 0.1 mg/dL (0.0-0.3); BILIRUBIN,TOTAL 0.5 mg/dL (0.2-1.0); TOTAL PROTEIN, SERUM 5.5 g/dL (6.0-8.3)
[2019-03-19 20:37] LABS: POTASSIUM 2.9 mmol/L (3.5-5.1)
[2019-03-19 20:48] LABS: B-TYPE NATRIURETIC PEPTIDE 195 pg/mL (0-100)
[2019-03-19] MEDS ORDERED: POTASSIUM BICARB/CIT AC 25 MEQ TABLET.EFF ONE (20:52)
[2019-03-19] MEDS ORDERED: CEFTRIAXONE SODIUM 1 GM ONE (21:48)
[2019-03-19] MEDS ORDERED: INSULIN HUMULIN R 100 UNIT/ML 3ML ONE (22:27)
== END 2019-03-19 22:43 | disposition home or self-care (01) ==
LOC: EDH 18:33
DX: N39.0 Urinary tract infection, site not specified (principal); N28.9 Disorder of kidney and ureter, unspecified; E87.6 Hypokalemia; E11.65 Type 2 diabetes mellitus with hyperglycemia; I10 Essential (primary) hypertension; I25.10 Atherosclerotic heart disease of native coronary artery without angina pectoris; M19.90 Unspecified osteoarthritis, unspecified site; Z88.1 Allergy status to other antibiotic agents; Z90.710 Acquired absence of both cervix and uterus; Z90.89 Acquired absence of other organs
CPT/HCPCS: 36415; 36600; 71045; 74176; 80048; 80076; 81001; 82550; 82803; 82948; 83690; 83880; 84484; 85025; 85610; 85730; 93005; 96372; 96374; 96375; 99285; J0696; J1815; J1940; J2405

== ENCOUNTER 2019-03-27 11:14 | Inpatient (IN) | payer MEDICARE ==
[~2019-03-27] VITALS: Ht 165.1 cm; Wt 109.4 kg
[2019-03-27] MEDS ORDERED: FUROSEMIDE 10 MG/ML 4ML VIAL ONE ×2 (11:47→21:24)
[2019-03-27] MEDS ORDERED: METHYLPREDNISOLONE SOD SUCC 125MG/2ML VIAL ONE ×2 (11:47→18:04)
[2019-03-27 11:59] LABS: BASOPHILS % (AUTO) 0.5 % (0.0-5.0); EOSINOPHILS % (AUTO) 1.6 % (0.0-8.0); HEMATOCRIT 33.3 % (36-48); LYMPHOCYTES % (AUTO) 13.1 % (21.0-51.0); MEAN CORPUSCULAR HEMOGLOBIN 28.4 pg (27.0-33.0); MEAN CORPUSCULAR HGB CONC 34.4 g/dL (32.0-36.0); MEAN CORPUSCULAR VOLUME 82.5 fL (79-99); MONOCYTES % (AUTO) 6.9 % (3.0-13.0); NEUTROPHILS % (AUTO) 77.9 % (40.0-77.0); PLATELET COUNT (AUTO) 162 K/uL (130-400); RED BLOOD CELL COUNT(AUTO) 4.04 MIL/uL (4.00-5.50); RED CELL DISTRIBUTION WIDTH 12.6 % (11.0-15.5); WHITE BLOOD COUNT (AUTO) 6.4 K/uL (4.8-10.8)
[2019-03-27] MEDS ORDERED: IPRATROPIUM/ALBUTEROL SULFATE 3 ML SOLUTION IH ONE ×2 (12:00→18:02)
[2019-03-27 12:30] LABS: ALBUMIN 1.8 g/dL (3.5-5.0); BILIRUBIN,TOTAL 0.7 mg/dL (0.2-1.0); PHOSPHORUS 3.2 mg/dL (2.5-4.9); TOTAL PROTEIN, SERUM 5.4 g/dL (6.0-8.3)
[2019-03-27 12:35] LABS: POTASSIUM 2.7 mmol/L (3.5-5.1)
[2019-03-27] MEDS ORDERED: FUROSEMIDE 10 MG/ML 4ML VIAL IVP SCH (20:00)
[2019-03-27] MEDS ORDERED: SODIUM CHLORIDE 0.9% 1000ML 1,000 ML IV SCH (20:15)
[2019-03-27] MEDS: METHYLPREDNISOLONE SOD SUCC 125MG/2ML VIAL IVP SCH (21:00)
[2019-03-27] MEDS ORDERED: INSULIN HUMULIN R 100 UNIT/ML 3ML ONE (21:26)
[2019-03-27] MEDS ORDERED: CEFTRIAXONE SODIUM 1 GM ONE (21:27)
[2019-03-27] MEDS: IPRATROPIUM/ALBUTEROL SULFATE 3 ML SOLUTION IH SCH (22:26)
[2019-03-27] MEDS ORDERED: CLONIDINE HCL 0.1 MG TABLET ONE (23:21)
[2019-03-27] MEDS ORDERED: AZITHROMYCIN 500MG+NS 250ML 250 ML IV ONE (23:22)
[2019-03-28] MEDS ORDERED: POTASSIUM BICARB/CIT AC 25 MEQ TABLET.EFF ONE (00:22)
[2019-03-28 00:35] VITALS: BP 156/96
[2019-03-28] MEDS ORDERED: ONDANSETRON HCL 4 MG/2 ML VIAL ONE (01:00)
[2019-03-28] MEDS: IPRATROPIUM/ALBUTEROL SULFATE 3 ML SOLUTION IH SCH ×6 (01:26→21:41)
[2019-03-28 03:37] VITALS: BP 179/96
[2019-03-28] MEDS: METHYLPREDNISOLONE SOD SUCC 125MG/2ML VIAL IVP SCH (05:37)
[2019-03-28] MEDS: FUROSEMIDE 10 MG/ML 4ML VIAL IVP SCH ×3 (05:37→21:19)
[2019-03-28] MEDS ORDERED: GUAIFENESIN-DM 200/20 MG 10 ML ONE (05:54)
[2019-03-28 05:57] LABS: CREATININE 2.6 mg/dL (0.5-1.5); POTASSIUM 3.3 mmol/L (3.5-5.1)
[2019-03-28] MEDS ORDERED: NITROGLYCERIN 0.4 MG SL TAB SL PRN (07:00)
[2019-03-28] MEDS ORDERED: DEXTROSE 50%-WATER 50 ML DISP.SYRIN IV PRN (07:00)
[2019-03-28] MEDS ORDERED: GUAIFENESIN-DM 200/20 MG 10 ML PO PRN (07:00)
[2019-03-28] MEDS ORDERED: POTASSIUM CHLORIDE 20 MEQ ERTAB PO PRN ×2 (07:00→12:15)
[2019-03-28] MEDS ORDERED: IPRATROPIUM/ALBUTEROL SULFATE 3 ML SOLUTION IH PRN (07:00)
[2019-03-28] MEDS ORDERED: LACTULOSE 20 GM/30 ML UDCUP PO PRN (07:00)
[2019-03-28] MEDS ORDERED: ONDANSETRON HCL 4 MG/2 ML VIAL IVP PRN (07:00)
[2019-03-28] MEDS ORDERED: POTASSIUM CHLORIDE 10% ELIXIR 20 MEQ/15 ML UDCUP PO PRN ×2 (07:00→12:15)
[2019-03-28] MEDS ORDERED: GLUCAGON 1MG KIT 1 MG ML IM PRN (07:00)
[2019-03-28] MEDS ORDERED: ACETAMINOPHEN 325 MG TAB PO PRN ×2 (07:00)
[2019-03-28] MEDS ORDERED: POTASSIUM CHLORIDE 20MEQ/100ML 100 ML IV PRN ×2 (07:00→12:15)
[2019-03-28] MEDS ORDERED: LIDOCAINE HCL-MPF 1% 2ML VIAL IJ PRN (07:00)
[2019-03-28] MEDS ORDERED: INSULIN R PO SSI SQ SCH (07:30)
[2019-03-28] MEDS ORDERED: INSULIN HUMULIN R 100 UNIT/ML 3ML SQ SCH ×6 (07:30→20:00)
[2019-03-28 07:59] VITALS: BP 147/85
[2019-03-28] MEDS ORDERED: VALS160T2 PO (08:25)
[2019-03-28] MEDS ORDERED: DULO30CA2 PO (08:25)
[2019-03-28] MEDS ORDERED: ALBUTEROL 0.083% NEB (08:25)
[2019-03-28] MEDS ORDERED: LORA10TA7 PO (08:25)
[2019-03-28] MEDS ORDERED: REPA2 PO (08:25)
[2019-03-28] MEDS ORDERED: [UNRECOGNIZED DRUG - CODE] PO (08:25)
[2019-03-28] MEDS ORDERED: FURO40TA7 PO (08:25)
[2019-03-28] MEDS ORDERED: ALPR1TAB2 PO (08:25)
[2019-03-28] MEDS ORDERED: FOLI1 PO (08:25)
[2019-03-28] MEDS ORDERED: ROPI2TAB9 PO (08:25)
[2019-03-28] MEDS ORDERED: HYDR12.54 PO ×2 (08:25)
[2019-03-28] MEDS ORDERED: ESOM40CA PO (08:25)
[2019-03-28] MEDS ORDERED: TEMA30CA5 PO (08:25)
[2019-03-28] MEDS ORDERED: ONDA8TAB5 PO (08:25)
[2019-03-28] MEDS ORDERED: POTA20TA82 PO (08:25)
[2019-03-28] MEDS ORDERED: HYDR-4068 PO (08:25)
[2019-03-28] MEDS ORDERED: MELO-106 PO (08:25)
[2019-03-28] MEDS ORDERED: METH2.5T6 PO (08:25)
[2019-03-28] MEDS ORDERED: ASPI-555 PO (08:25)
[2019-03-28] MEDS ORDERED: MYCO500T PO (08:25)
[2019-03-28] MEDS ORDERED: INSU100I21 SQ (08:25)
[2019-03-28] MEDS ORDERED: FERR325T22 PO (08:25)
[2019-03-28] MEDS ORDERED: BENZ-17 PO (08:25)
[2019-03-28] MEDS ORDERED: DIPH25TA51 PO (08:25)
[2019-03-28] MEDS ORDERED: PREG100C PO (08:25)
[2019-03-28] MEDS ORDERED: PRED10TA3 PO (08:25)
[2019-03-28] MEDS ORDERED: AZITHROMYCIN 500MG+NS 250ML 250 ML IV SCH (09:00)
[2019-03-28] MEDS: POTASSIUM CHLORIDE 10 MEQ in SODIUM CHLORIDE 0.9% 100 ML IV SCH ×2 (09:00→17:07)
[2019-03-28] MEDS: FAMOTIDINE 20MG TAB 20 MG TAB PO SCH (09:12)
[2019-03-28] MEDS ORDERED: MAGNESIUM 4GM PREMIX 100ML 100 ML IV SCH (10:00)
[2019-03-28] MEDS ORDERED: POTASSIUM CHLORIDE 10MEQ/100ML 10 MEQ/100 ML ML IV SCH (10:00)
[2019-03-28] MEDS ORDERED: IPRATROPIUM/ALBUTEROL SULFATE 3 ML SOLUTION IH SCH (10:00)
[2019-03-28] MEDS ORDERED: POTASSIUM CHLORIDE 10 MEQ in SODIUM CHLORIDE 0.9% 50 ML IV SCH (10:22)
[2019-03-28] MEDS ORDERED: BENZONATATE 100 MG CAPSULE PO SCH (11:45)
[2019-03-28] MEDS ORDERED: ALBUTEROL 0.083% NEB PRN (11:45)
[2019-03-28] MEDS ORDERED: HYDROCODONE/ACETAMINOPHEN 10/325 MG TAB PO PRN (11:45)
[2019-03-28] MEDS ORDERED: DIPHENHYDRAMINE HCL 25 MG CAPSULE PO PRN (11:45)
[2019-03-28] MEDS ORDERED: ONDANSETRON HCL 8 MG PO SCH (11:45)
[2019-03-28 11:52] VITALS: BP 166/77
--- NOTE | 2019-03-28 11:57 | NUR ---
DR VALDEZ VISITED WITH PATIENT. HOME MEDICATIONS RESUMED. DR VALDEZ STATES HE DOES NOT THINK THIS PATIENT SHOULD BE TRANSFERRED TO ICU BECAUSE HER BLOOD GLUCOSE IS ALWAYS ABOVE 500 AT HIS OFFICE.
[2019-03-28] MEDS ORDERED: MAGNESIUM 2GM PREMIX 50ML 50 ML IV PRN (12:15)
[2019-03-28] MEDS ORDERED: LIDOCAINE HCL-MPF 1% 2ML VIAL IV PRN (12:15)
[2019-03-28] MEDS ORDERED: INSULIN REGULAR, HUMAN 3ML 100 UNIT in SODIUM CHLORIDE 0.9% 99 ML IV PRN ×2 (12:15)
[2019-03-28 12:46] LABS: CREATININE 2.7 mg/dL (0.5-1.5); POTASSIUM 3.5 mmol/L (3.5-5.1)
[2019-03-28] MEDS: PREGABALIN 100 MG CAPSULE PO SCH ×3 (13:06→21:00)
[2019-03-28] MEDS: POTASSIUM CHLORIDE 20 MEQ ERTAB PO SCH ×3 (13:07→21:00)
[2019-03-28] MEDS: REPAGLINIDE 1 MG TAB PO SCH ×2 (13:10→17:10)
--- NOTE | 2019-03-28 13:56 | NUR ---
RD NOTIFICATION DIET: 75GMCCD. PO INTAKE 100% AND HAS GOOD APPETITE. EMESIS RESOLVED PER PT. LBM: 03/28. PT AFFECTED BY THE FLOOD THAT HAPPENED ON October. PT STATED SHE LOST HER MEDS, GLUCOMETER, ETC. PT CURRENTLY LIVING IN POOR CONDITIONS AND STILL UNABLE TO FIND A NEW HOME. PT IS CONCERNED THAT THIS HAS LED HER TO THE HOSPITAL AND ASKED TO SPEAK TO SOMEONE WHO CAN HELP HER WITH THESE CURRENT CONDITIONS. PT IS EMOTIONAL AND VERY STRESSED. SHE ASKED ME TO COME BACK AT ANOTHER TIME. RD PENDING DIET AND NUTRITION EDUCATION. RECOMMENDATIONS/ INTERVENTIONS: ADD RENAL NON-DIALYSIS AND FLUID RESTRICTION TO DIET ORDER PENDING DIET AND NUTRITION EDUCATION PT WANTING TO SPEAK TO SOMEONE REGARDING SOCIOECONOMIC/ LIVING CONDITIONS RD WILL CONTINUE TO MONITOR AND F/U, THANK YOU. Addendum: 03/28/19 at [address] Amended: Links added.
[2019-03-28 16:29] LABS: CREATININE 2.9 mg/dL (0.5-1.5); POTASSIUM 3.4 mmol/L (3.5-5.1)
[2019-03-28 17:10] VITALS: BP 178/69
[2019-03-28 19:33] VITALS: BP 149/91
[2019-03-28 20:54] LABS: CREATININE 2.9 mg/dL (0.5-1.5); POTASSIUM 3.1 mmol/L (3.5-5.1)
[2019-03-28] MEDS: INSULIN HUMULIN R 100 UNIT/ML 3ML SQ SCH (20:56)
[2019-03-28] MEDS: ALPRAZOLAM 1 MG TAB PO SCH (21:00)
[2019-03-28] MEDS: TEMAZEPAM 30 MG CAP PO SCH (21:00)
[2019-03-28] MEDS ORDERED: PREDNISONE 20 MG TABLET PO SCH (21:00)
[2019-03-28] MEDS: MELOXICAM 7.5 MG TABLET PO SCH (21:00)
[2019-03-28] MEDS: DULOXETINE HCL 30 MG CAP PO SCH (21:00)
[2019-03-28] MEDS ORDERED: INSULIN GLARGINE 100 UNITS/ML 10 ML VIAL SQ SCH ×3 (21:00)
[2019-03-28] MEDS: MYCOPHENOLATE MOFETIL 250 MG CAPSULE PO SCH (21:00)
[2019-03-28] MEDS ORDERED: FUROSEMIDE 40 MG TABLET PO SCH (21:00)
[2019-03-28] MEDS: HYDROCODONE/ACETAMINOPHEN 10/325 MG TAB PO PRN (21:07)
[2019-03-28 23:17] LABS: APPEARANCE,URINE Cloudy (CLEAR); BILIRUBIN,URINE Negative (NEGATIVE); COLOR,URINE Yellow (YELLOW); GLUCOSE, URINE (UA) 500 mg/dL (NEGATIVE); KETONES,URINE Negative (NEGATIVE); LEUKOCYTE ESTERASE ,URINE Negative (NEGATIVE); NITRATE,URINE Negative (NEGATIVE); OCCULT BLOOD,URINE Moderate (NEGATIVE); PH,URINE 5.5 (5.0-8.0); PROTEIN,URINE 300 mg/dL (NEGATIVE); UROBILINOGEN,URINE 0.2 mg/dL (0.2-1.0)
[2019-03-28 23:30] LABS: BACTERIA,URINE Moderate /HPF (None Seen)
[2019-03-29] VITALS: BP 121/66
[2019-03-29] MEDS: INSULIN HUMULIN R 100 UNIT/ML 3ML SQ SCH ×6 (00:18→21:06)
[2019-03-29 00:51] LABS: CREATININE 2.8 mg/dL (0.5-1.5)
[2019-03-29 01:02] LABS: POTASSIUM 2.7 mmol/L (3.5-5.1)
[2019-03-29] MEDS: IPRATROPIUM/ALBUTEROL SULFATE 3 ML SOLUTION IH SCH ×6 (01:29→21:25)
[2019-03-29] MEDS: POTASSIUM CHLORIDE 10 MEQ in SODIUM CHLORIDE 0.9% 100 ML IV SCH (01:45)
[2019-03-29 04:00] VITALS: BP 118/64
[2019-03-29 05:28] LABS: CREATININE 2.7 mg/dL (0.5-1.5); MAGNESIUM 2.5 mg/dL (1.80-2.40)
[2019-03-29 05:34] LABS: B-TYPE NATRIURETIC PEPTIDE 286 pg/mL (0-100); POTASSIUM 2.6 mmol/L (3.5-5.1)
[2019-03-29 05:39] LABS: BASOPHILS % (AUTO) 0.1 % (0.0-5.0); EOSINOPHILS % (AUTO) 0.1 % (0.0-8.0); HEMATOCRIT 27.9 % (36-48); LYMPHOCYTES % (AUTO) 7.2 % (21.0-51.0); MEAN CORPUSCULAR HEMOGLOBIN 28.9 pg (27.0-33.0); MEAN CORPUSCULAR HGB CONC 35.2 g/dL (32.0-36.0); MEAN CORPUSCULAR VOLUME 81.9 fL (79-99); MONOCYTES % (AUTO) 3.5 % (3.0-13.0); NEUTROPHILS % (AUTO) 89.1 % (40.0-77.0); PLATELET COUNT (AUTO) 176 K/uL (130-400); RED BLOOD CELL COUNT(AUTO) 3.41 MIL/uL (4.00-5.50); WHITE BLOOD COUNT (AUTO) 9.9 K/uL (4.8-10.8)
[2019-03-29] MEDS: FUROSEMIDE 10 MG/ML 4ML VIAL IVP SCH (06:00)
[2019-03-29] MEDS: LEVOTHYROXINE 100 MCG TABLET PO SCH (06:41)
[2019-03-29 08:00] VITALS: BP 126/72
[2019-03-29 08:15] LABS: CREATININE 2.7 mg/dL (0.5-1.5)
[2019-03-29 08:22] LABS: POTASSIUM 2.5 mmol/L (3.5-5.1)
[2019-03-29] MEDS ORDERED: POTASSIUM CHLORIDE 20MEQ/100ML 100 ML IV SCH (08:45)
[2019-03-29] MEDS: ASPIRIN 81 MG EC TAB PO SCH (08:52)
[2019-03-29] MEDS: LORATADINE 10 MG TABLET PO SCH (08:52)
[2019-03-29] MEDS: REPAGLINIDE 1 MG TAB PO SCH ×3 (08:52→17:08)
[2019-03-29] MEDS: FAMOTIDINE 20MG TAB 20 MG TAB PO SCH (08:52)
[2019-03-29] MEDS: FOLIC ACID 1 MG TABLET PO SCH (08:52)
[2019-03-29] MEDS: MYCOPHENOLATE MOFETIL 250 MG CAPSULE PO SCH ×2 (08:52→20:17)
[2019-03-29] MEDS: PREDNISONE 20 MG TABLET PO SCH (08:53)
[2019-03-29] MEDS: PREGABALIN 100 MG CAPSULE PO SCH ×3 (08:53→20:16)
[2019-03-29] MEDS: POTASSIUM CHLORIDE 20 MEQ ERTAB PO SCH ×4 (08:53→20:17)
[2019-03-29] MEDS: FERROUS SULFATE 325 MG TABLET.DR PO SCH (08:54)
[2019-03-29] MEDS: MELOXICAM 7.5 MG TABLET PO SCH ×2 (08:54→20:16)
[2019-03-29] MEDS ORDERED: PREDNISONE 10 MG TABLET PO SCH (09:00)
[2019-03-29] MEDS ORDERED: NON-FORMULARY MEDICATION 1 EACH (Hydrochlorothiazide 12.5 MG) PO SCH (09:00)
[2019-03-29] MEDS ORDERED: INSULIN DETEMIR 15 UNIT SQ SCH (09:00)
[2019-03-29] MEDS ORDERED: FUROSEMIDE 10 MG/ML 4ML VIAL IVP SCH (09:00)
[2019-03-29] MEDS ORDERED: HYDROCHLOROTHIAZIDE 25 MG TABLET PO SCH (09:00)
[2019-03-29] MEDS ORDERED: PANTOPRAZOLE SODIUM 40 MG TABLET.DR PO SCH (09:00)
[2019-03-29] MEDS: POTASSIUM CHLORIDE 10MEQ/100ML 100 ML IV PRN ×4 (09:13→21:05)
[2019-03-29] MEDS ORDERED: POTASSIUM CHLORIDE 20 MEQ ERTAB PO SCH (10:00)
[2019-03-29 11:25] VITALS: BP 149/88
--- NOTE | 2019-03-29 14:23 | NUR ---
RD NOTIFICATION/ FOLLOW UP DIET: 75GMCCD. PO INTAKE 100% AND HAS GOOD APPETITE. PT STATED SHE IS STILL HUNGRY BETWEEN MEALS. LBM: 03/28 NOTED. 2+ PITTING EDEMA, SKIN INTACT. PENDING RENAL CONSULT- CURRENTLY IN PLACE. PT DOES NOT FOLLOW ANY DIET AT HOME AND DOES NOT CHECK BG LEVELS REGULARLY DUE TO LACK OF INSUFFICIENT FUNDS. PT STATED SHE WAS AND STILL IS BEING AFFECTED BY THE FLOOD THAT HAPPENED BACK IN OCTOBER. RD PROVIDED DM AND FLUID RESTRICTION DIET AND NUTRITION EDUCATION. PT ASKED QUESTIONS, RD ANSWERED AND PT VERBALIZED UNDERSTANDING. EDUCATION MATERIALS PROVIDED. RD RECOMMENDS CONTINUE CURRENT DIET OFFER DM SNACKS BETWEEN MEALS RD PROVIDED DIET AND NUTRITION EDUCATION, MATERIALS PROVIDED RD WILL CONTINUE TO MONITOR AND F/U NEEDED Addendum: 03/29/19 at [address] Amended: Links added.
--- NOTE | 2019-03-29 14:29 | NUR ---
DIET EDUCATION PT DOES NOT FOLLOW ANY DIET AT HOME AND DOES NOT CHECK BG LEVELS REGULARLY DUE TO LACK OF INSUFFICIENT FUNDS. PT STATED SHE WAS AND STILL IS BEING AFFECTED BY THE FLOOD THAT HAPPENED BACK IN OCTOBER. RD PROVIDED DM AND FLUID RESTRICTION DIET AND NUTRITION EDUCATION. PT ASKED QUESTIONS, RD ANSWERED AND PT VERBALIZED UNDERSTANDING. EDUCATION MATERIALS PROVIDED. Addendum: 03/29/19 at [address] Amended: Links added.
[2019-03-29 16:00] VITALS: BP 122/65
[2019-03-29] MEDS: FUROSEMIDE 20 MG TABLET PO SCH (17:00)
--- NOTE | 2019-03-29 17:30 | NUR ---
INITIAL CM NOTE MET W PATIENT FOR DISCHARGE PLANING NOTE: NERI THE COAT REPAIR INSPECTOR CARLA AND THE RD BOTH APPROACHED THIS CM TO SAY THAT THE PATIENT HAD MANY PROBLEMS, INC NO CPAP, AND ISSUES WITH BELONGING AFTER FLOODING PT HAS BEEN DISABLE FOR MANY YEARS. IS INDP OF ADLS, BUT USES A WALKER, A NEBULIZER, A CPAP,ETC. ALL OF WHICH WERE DAMAMGED IN FLOODING IN HER HOME IN OCTOBER. STATES THAT THE CPAP MACHINE WAS PICKED UP BY THE [employer] BECAUSE SHE CALLED AND TOLD THEM TO COME GET IT BECAUSE IT WAS FULL OF ROACHES.., IT WAS GIVEN TO HER ABOUT A YEAR AGO. STATES SHE HAS ISSUES WITH HER SONS WHO LIVE WITH HER BECAUSE THEY DO NOT GIVE HER MONEY FOR RENT ETC. STATES SHE IS BEHIND ON HER RENT AN HAS BEEN DENIED HOUSING NINE TIMES. PT IS CRYING AND VERY UPSET. REASSURANCE GIVEN WILL FOLLOW UP IN AM Addendum: 03/29/19 at 1859 by CATERINA LOGAN RN CM Amended: Links added.
[2019-03-29 20:00] VITALS: BP 123/73
[2019-03-29] MEDS: TEMAZEPAM 30 MG CAP PO SCH (20:16)
[2019-03-29] MEDS: ALPRAZOLAM 1 MG TAB PO SCH (20:16)
[2019-03-29] MEDS: DULOXETINE HCL 30 MG CAP PO SCH (20:17)
[2019-03-29] MEDS: INSULIN GLARGINE 100 UNITS/ML 10 ML VIAL SQ SCH (21:07)
[2019-03-30] MEDS: INSULIN HUMULIN R 100 UNIT/ML 3ML SQ SCH ×6 (00:35→21:20)
[2019-03-30] MEDS: IPRATROPIUM/ALBUTEROL SULFATE 3 ML SOLUTION IH SCH ×6 (01:21→21:33)
[2019-03-30 04:00] VITALS: BP 114/62
[2019-03-30 05:43] LABS: BASOPHILS % (AUTO) 0.2 % (0.0-5.0); EOSINOPHILS % (AUTO) 0.4 % (0.0-8.0); HEMATOCRIT 29.9 % (36-48); LYMPHOCYTES % (AUTO) 14.1 % (21.0-51.0); MEAN CORPUSCULAR HEMOGLOBIN 27.9 pg (27.0-33.0); MEAN CORPUSCULAR HGB CONC 33.8 g/dL (32.0-36.0); MEAN CORPUSCULAR VOLUME 82.5 fL (79-99); MONOCYTES % (AUTO) 4.8 % (3.0-13.0); NEUTROPHILS % (AUTO) 80.5 % (40.0-77.0); PLATELET COUNT (AUTO) 217 K/uL (130-400); RED BLOOD CELL COUNT(AUTO) 3.62 MIL/uL (4.00-5.50); RED CELL DISTRIBUTION WIDTH 13.2 % (11.0-15.5); WHITE BLOOD COUNT (AUTO) 8.3 K/uL (4.8-10.8)
[2019-03-30 05:51] LABS: CREATININE 2.4 mg/dL (0.5-1.5); MAGNESIUM 2.3 mg/dL (1.80-2.40); PHOSPHORUS 3.8 mg/dL (2.5-4.9); POTASSIUM 3.5 mmol/L (3.5-5.1)
[2019-03-30] MEDS: LEVOTHYROXINE 100 MCG TABLET PO SCH (06:21)
[2019-03-30] MEDS: POTASSIUM CHLORIDE 10MEQ/100ML 100 ML IV PRN ×2 (06:47→10:52)
[2019-03-30 08:00] VITALS: BP 124/80
[2019-03-30] MEDS ORDERED: METHOTREXATE SODIUM 2.5 MG TABLET PO SCH (09:00)
[2019-03-30] MEDS: REPAGLINIDE 1 MG TAB PO SCH ×3 (09:21→16:23)
[2019-03-30] MEDS: MYCOPHENOLATE MOFETIL 250 MG CAPSULE PO SCH ×2 (09:21→19:54)
[2019-03-30] MEDS: FERROUS SULFATE 325 MG TABLET.DR PO SCH (09:21)
[2019-03-30] MEDS: PREGABALIN 100 MG CAPSULE PO SCH ×3 (09:22→19:55)
[2019-03-30] MEDS: ASPIRIN 81 MG EC TAB PO SCH (09:22)
[2019-03-30] MEDS: FOLIC ACID 1 MG TABLET PO SCH (09:22)
[2019-03-30] MEDS: LORATADINE 10 MG TABLET PO SCH (09:22)
[2019-03-30] MEDS: POTASSIUM CHLORIDE 20 MEQ ERTAB PO SCH ×4 (09:22→19:56)
[2019-03-30] MEDS: PREDNISONE 20 MG TABLET PO SCH (09:23)
[2019-03-30] MEDS: MELOXICAM 7.5 MG TABLET PO SCH ×2 (09:23→19:55)
[2019-03-30] MEDS: FUROSEMIDE 20 MG TABLET PO SCH ×2 (09:23→16:24)
[2019-03-30] MEDS: FAMOTIDINE 20MG TAB 20 MG TAB PO SCH (09:23)
[2019-03-30] MEDS: CEFTRIAXONE SODIUM 1 GM IVP SCH (10:51)
[2019-03-30 11:46] VITALS: BP 130/75
[2019-03-30] MEDS: HYDROCODONE/ACETAMINOPHEN 10/325 MG TAB PO PRN (12:23)
[2019-03-30 15:41] VITALS: BP 121/56
[2019-03-30] MEDS: DULOXETINE HCL 30 MG CAP PO SCH (19:54)
[2019-03-30] MEDS: TEMAZEPAM 30 MG CAP PO SCH (19:55)
[2019-03-30] MEDS: ALPRAZOLAM 1 MG TAB PO SCH (19:55)
[2019-03-30 20:00] VITALS: BP 137/70
[2019-03-30] MEDS: INSULIN GLARGINE 100 UNITS/ML 10 ML VIAL SQ SCH (21:19)
[2019-03-31] VITALS (12 sets, daily range): BP systolic 88–139; BP diastolic 55–77
[2019-03-31] MEDS: INSULIN HUMULIN R 100 UNIT/ML 3ML SQ SCH ×6 (00:08→22:13)
[2019-03-31] MEDS: IPRATROPIUM/ALBUTEROL SULFATE 3 ML SOLUTION IH SCH ×5 (01:41→22:29)
[2019-03-31 05:19] LABS: BASOPHILS % (AUTO) 0.9 % (0.0-5.0); EOSINOPHILS % (AUTO) 0.4 % (0.0-8.0); HEMATOCRIT 32.9 % (36-48); LYMPHOCYTES % (AUTO) 18.3 % (21.0-51.0); MEAN CORPUSCULAR HEMOGLOBIN 28.9 pg (27.0-33.0); MEAN CORPUSCULAR VOLUME 84.7 fL (79-99); NEUTROPHILS % (AUTO) 74.4 % (40.0-77.0); NUCLEATED RED BLOOD CELLS 0.1 % (0.0-0.19); PLATELET COUNT (AUTO) 192 K/uL (130-400); RED BLOOD CELL COUNT(AUTO) 3.88 MIL/uL (4.00-5.50); RED CELL DISTRIBUTION WIDTH 13.1 % (11.0-15.5)
[2019-03-31] MEDS: LEVOTHYROXINE 100 MCG TABLET PO SCH (05:29)
[2019-03-31 05:37] LABS: CREATININE 2.4 mg/dL (0.5-1.5); POTASSIUM 4.4 mmol/L (3.5-5.1)
--- NOTE | 2019-03-31 06:45 | NUR ---
NURSING NOTE Spoke with Leonor Jamison, informed her that pt's BUN is 78. She stated to d/c Lasix BID and start on Lasix 20mg daily. Also to inform [employer] Tutor when they come in today. no other orders at this time
--- NOTE | 2019-03-31 07:45 | NUR ---
NOTE SLEEPING. AWAKENS TO VERBAL STIMULI. ORIENTED X3. DENIES PAIN OR DISCOMFORT AT THIS TIME. SHE IS NPO FOR KIDNEY BIOPSY. FAMILY AT HER SIDE.
[2019-03-31] MEDS: REPAGLINIDE 1 MG TAB PO SCH ×3 (08:00→17:00)
[2019-03-31] MEDS: MYCOPHENOLATE MOFETIL 250 MG CAPSULE PO SCH ×2 (09:00→22:18)
[2019-03-31] MEDS: PREGABALIN 100 MG CAPSULE PO SCH ×3 (09:00→22:18)
[2019-03-31] MEDS: POTASSIUM CHLORIDE 20 MEQ ERTAB PO SCH ×4 (09:00→22:18)
[2019-03-31] MEDS: MELOXICAM 7.5 MG TABLET PO SCH ×2 (09:00→22:18)
[2019-03-31] MEDS ORDERED: FENTANYL CITRATE PF 50 MCG/1 ML 2ML VIAL ONE (13:50)
[2019-03-31] MEDS ORDERED: MIDAZOLAM HCL 1 MG/ML 2ML VIAL ONE (13:51)
[2019-03-31] MEDS ORDERED: LIDOCAINE HCL 1% 20 ML VIAL ONE (14:06)
--- NOTE | 2019-03-31 14:30 | NUR ---
CT GD LT RENAL BX PROCEDURE PERFORMED BY DR Justice FONTENOT. PUNCTURE SITE LT LOWER BACK AND PATIENT TOLERATED PROCEDURE WELL. SPECIMEN X 3 COLLECTED AND SENT TO LAB. END OF PROCEDURE AT 1415. BIOPSY NEEDLE REMOVED AND DRESSING APPLIED. NO BLEEDING NOTED. REPORT GIVEN TO Filomena BURGOS RN AND PATIENT TRANSPORTED TO [facility] VIA BED AT 1430. AAO X3 WITH NO C/O PAIN.
--- NOTE | 2019-03-31 14:35 | NUR ---
note RETURNED FROM KIDNEY BIOPSY TO LEFT FLANK. DRESSING TO SITE D/I. SHE IS A LITTLE MORE AWAKE AND SHE IS EATING RIGHT AWAY FOR SHE HAD BEEN NPO SINCE LAST NIGHT.FAMILY AT HER SIDE. TOLERATED PROCEDURE WITH MINIMAL DISCOMFORT ACCORDING TO Mary AMADOR.
[2019-03-31] MEDS: FUROSEMIDE 20 MG TABLET PO SCH (17:59)
[2019-03-31] MEDS: FOLIC ACID 1 MG TABLET PO SCH (17:59)
[2019-03-31] MEDS: FAMOTIDINE 20MG TAB 20 MG TAB PO SCH (17:59)
[2019-03-31] MEDS: LORATADINE 10 MG TABLET PO SCH (17:59)
[2019-03-31] MEDS: ASPIRIN 81 MG EC TAB PO SCH (17:59)
[2019-03-31] MEDS: PREDNISONE 20 MG TABLET PO SCH (18:00)
[2019-03-31] MEDS: FERROUS SULFATE 325 MG TABLET.DR PO SCH (18:00)
[2019-03-31] MEDS: CEFTRIAXONE SODIUM 1 GM IVP SCH (18:00)
[2019-03-31] MEDS: INSULIN GLARGINE 100 UNITS/ML 10 ML VIAL SQ SCH (22:12)
[2019-03-31] MEDS: TEMAZEPAM 30 MG CAP PO SCH (22:18)
[2019-03-31] MEDS: DULOXETINE HCL 30 MG CAP PO SCH (22:18)
[2019-03-31] MEDS: ALPRAZOLAM 1 MG TAB PO SCH (22:19)
[2019-04-01] VITALS (7 sets, daily range): BP systolic 100–153; BP diastolic 45–103
[2019-04-01] MEDS: INSULIN HUMULIN R 100 UNIT/ML 3ML SQ SCH ×6 (01:08→20:31)
[2019-04-01] MEDS: IPRATROPIUM/ALBUTEROL SULFATE 3 ML SOLUTION IH SCH ×6 (01:45→21:05)
[2019-04-01] MEDS: LEVOTHYROXINE 100 MCG TABLET PO SCH (06:48)
[2019-04-01] MEDS: REPAGLINIDE 1 MG TAB PO SCH ×3 (08:00→17:18)
--- NOTE | 2019-04-01 08:10 | NUR ---
NOTE SLEEPING AROUSABLE. DENIES PAIN OR DISTRESS. NO N/V. HAS BEEN EATING SNACKS DURING THE NIGHT AND HER BLOOD SUGAR HAS BEEN HIGHER TODAY. BREATHING STATUS STABLE. BBS COARSENESS TO AL BUT NO WHEEZING OR DISTRESS NOTED. DRESSING TO BACK FROM BIOPSY D/I.
[2019-04-01] MEDS: ASPIRIN 81 MG EC TAB PO SCH (10:34)
[2019-04-01] MEDS: LORATADINE 10 MG TABLET PO SCH (10:34)
[2019-04-01] MEDS: MYCOPHENOLATE MOFETIL 250 MG CAPSULE PO SCH ×2 (10:34→20:48)
[2019-04-01] MEDS: FUROSEMIDE 20 MG TABLET PO SCH (10:35)
[2019-04-01] MEDS: MELOXICAM 7.5 MG TABLET PO SCH ×2 (10:35→20:48)
[2019-04-01] MEDS: PREDNISONE 20 MG TABLET PO SCH (10:35)
[2019-04-01] MEDS: FAMOTIDINE 20MG TAB 20 MG TAB PO SCH (10:35)
[2019-04-01] MEDS: FERROUS SULFATE 325 MG TABLET.DR PO SCH (10:35)
[2019-04-01] MEDS: POTASSIUM CHLORIDE 20 MEQ ERTAB PO SCH ×4 (10:37→20:48)
[2019-04-01] MEDS: FOLIC ACID 1 MG TABLET PO SCH (10:37)
[2019-04-01] MEDS: PREGABALIN 100 MG CAPSULE PO SCH ×3 (10:37→20:48)
--- NOTE | 2019-04-01 18:00 | NUR ---
NOTE PATIENT STABLE THROUGHOUT THE DAY. NO DISTRESS OR SOB NO FEVERNO OTHER PROBLEM VOICED. SHE SPENDS MOST OF THE DAY SLEEPING. DR ARANGO CAME IN SPOKE TO HER AND SHE WILL PROBABLY WAIT FOR KIDNEY BIOPSY RESULTS TO COME BACK. OTHERWISE DR VALDEZ MAD ROUNDS EARLIER AND NO ORDERS WRITTEN.
[2019-04-01] MEDS: INSULIN GLARGINE 100 UNITS/ML 10 ML VIAL SQ SCH (20:32)
[2019-04-01] MEDS: CEFTRIAXONE SODIUM 1 GM IVP SCH (20:46)
[2019-04-01] MEDS: TEMAZEPAM 30 MG CAP PO SCH (20:48)
[2019-04-01] MEDS: ALPRAZOLAM 1 MG TAB PO SCH (20:48)
[2019-04-01] MEDS: DULOXETINE HCL 30 MG CAP PO SCH (20:48)
[2019-04-02] MEDS: INSULIN HUMULIN R 100 UNIT/ML 3ML SQ SCH ×5 (00:46→22:05)
[2019-04-02] MEDS: IPRATROPIUM/ALBUTEROL SULFATE 3 ML SOLUTION IH SCH ×6 (01:13→21:46)
[2019-04-02 03:36] VITALS: BP 129/78
[2019-04-02 04:58] LABS: HEMATOCRIT 30.1 % (36-48); MEAN CORPUSCULAR HEMOGLOBIN 27.6 pg (27.0-33.0); MEAN CORPUSCULAR HGB CONC 32.5 g/dL (32.0-36.0); MEAN CORPUSCULAR VOLUME 84.9 fL (79-99); PLATELET COUNT (AUTO) 224 K/uL (130-400); RED BLOOD CELL COUNT(AUTO) 3.54 MIL/uL (4.00-5.50); RED CELL DISTRIBUTION WIDTH 13.5 % (11.0-15.5); WHITE BLOOD COUNT (AUTO) 6.6 K/uL (4.8-10.8)
[2019-04-02 05:08] LABS: CREATININE 2.2 mg/dL (0.5-1.5); POTASSIUM 5.3 mmol/L (3.5-5.1)
[2019-04-02 06:00] VITALS: BP 136/78
[2019-04-02] MEDS: LEVOTHYROXINE 100 MCG TABLET PO SCH (06:16)
--- NOTE | 2019-04-02 08:10 | NUR ---
NOTE AAOX3. DENIES PAIN AT THIS TIME. HAS BEEN HER USUAL SLEEP MOST OF THE TIME AND EATING SNACKS ALL THE TIME. ADJUSTMENTS MADE TO HER INSULINS. PLAN OF CARE REMAINS SAME. STILL WAITING FOR PATHOLOGY TO COME BACK ON KIDNEY BIOPSY. WILL HOLD POTASSIUM FOR HER LEVEL IS 5.3 THIS AM AND WAIT FOR DR ARANGO TO ROUND AND ASK ABOUT IT.
[2019-04-02] MEDS: MYCOPHENOLATE MOFETIL 250 MG CAPSULE PO SCH ×2 (10:45→21:05)
[2019-04-02] MEDS: LORATADINE 10 MG TABLET PO SCH (10:45)
[2019-04-02] MEDS: FAMOTIDINE 20MG TAB 20 MG TAB PO SCH (10:45)
[2019-04-02] MEDS: PREGABALIN 100 MG CAPSULE PO SCH ×3 (10:45→21:05)
[2019-04-02] MEDS: MELOXICAM 7.5 MG TABLET PO SCH ×2 (10:45→21:05)
[2019-04-02] MEDS: FERROUS SULFATE 325 MG TABLET.DR PO SCH (10:45)
[2019-04-02] MEDS: FUROSEMIDE 20 MG TABLET PO SCH (10:45)
[2019-04-02] MEDS: ASPIRIN 81 MG EC TAB PO SCH (10:45)
[2019-04-02] MEDS: PREDNISONE 20 MG TABLET PO SCH (10:45)
[2019-04-02] MEDS: REPAGLINIDE 1 MG TAB PO SCH ×3 (10:46→16:26)
[2019-04-02] MEDS: FOLIC ACID 1 MG TABLET PO SCH (10:46)
[2019-04-02 11:03] VITALS: BP 148/83
[2019-04-02 16:00] VITALS: BP 141/75
--- NOTE | 2019-04-02 18:53 | NUR ---
NOTE STABLE. NO DISTRESS OR SOB ALL DAY. DR ANCELMO ABRAHAM AND JOSÉ MIGUEL. ALL WAITING ON PATHOLOGY. HOPEFULLY WEDNESDAY WILL GET RESULTS.
[2019-04-02 19:52] VITALS: BP 161/92
[2019-04-02] MEDS ORDERED: INSULIN GLARGINE 100 UNITS/ML 10 ML VIAL SQ SCH (21:00)
[2019-04-02] MEDS: TEMAZEPAM 30 MG CAP PO SCH (21:00)
[2019-04-02] MEDS: DULOXETINE HCL 30 MG CAP PO SCH (21:05)
[2019-04-02] MEDS: ALPRAZOLAM 1 MG TAB PO SCH (21:06)
[2019-04-02] MEDS: CEFTRIAXONE SODIUM 1 GM IVP SCH (21:18)
[2019-04-02 23:54] VITALS: BP 131/68
[2019-04-03] MEDS: IPRATROPIUM/ALBUTEROL SULFATE 3 ML SOLUTION IH SCH ×4 (01:35→13:41)
[2019-04-03 03:27] VITALS: BP 125/81
[2019-04-03] MEDS: LEVOTHYROXINE 100 MCG TABLET PO SCH (05:42)
[2019-04-03] MEDS: INSULIN HUMULIN R 100 UNIT/ML 3ML SQ SCH ×2 (05:47→11:23)
[2019-04-03 07:55] VITALS: BP 120/60
[2019-04-03] MEDS: FOLIC ACID 1 MG TABLET PO SCH (09:03)
[2019-04-03] MEDS: MELOXICAM 7.5 MG TABLET PO SCH (09:03)
[2019-04-03] MEDS: MYCOPHENOLATE MOFETIL 250 MG CAPSULE PO SCH (09:03)
[2019-04-03] MEDS: PREGABALIN 100 MG CAPSULE PO SCH ×2 (09:03→14:13)
[2019-04-03] MEDS: FUROSEMIDE 20 MG TABLET PO SCH (09:04)
[2019-04-03] MEDS: ASPIRIN 81 MG EC TAB PO SCH (09:04)
[2019-04-03] MEDS: FERROUS SULFATE 325 MG TABLET.DR PO SCH (09:04)
[2019-04-03] MEDS: PREDNISONE 20 MG TABLET PO SCH (09:04)
[2019-04-03] MEDS: REPAGLINIDE 1 MG TAB PO SCH ×2 (09:04→12:09)
[2019-04-03] MEDS: LORATADINE 10 MG TABLET PO SCH (09:04)
[2019-04-03] MEDS: FAMOTIDINE 20MG TAB 20 MG TAB PO SCH (09:04)
[2019-04-03 11:22] LABS: CREATININE 1.7 mg/dL (0.5-1.5); POTASSIUM 5.2 mmol/L (3.5-5.1)
[2019-04-03 11:25] VITALS: BP 171/100
[2019-04-03 11:46] VITALS: BP 135/66
--- NOTE | 2019-04-03 12:00 | NUR ---
cm note spoke to marium Jamison MEDICARE CONTACT SPECIALIST and informed of pt request for cpap machine, but pt not currently using for the last 3 months including here at hospital. pt has dr Villatoro as an OP teacher emotionally impaired and that call made to [facility] and spoke to Trudi velazquez and states that they have already requested info from her pulmonolgist, and they sent the usage report of cpap machine and they wish to see her as an OP, I did informed pt of this. verbalizes understanding. new orders received.
--- NOTE | 2019-04-03 15:39 | NUR ---
PATIENT DISCHARGE PATIENT DISCHARGED, IV DISCONTINUED, CATHLON INTACT, BLEEDING CONTROLLED, PATIENT TOLERATED WITHOUT INCIDENT.
== END 2019-04-03 15:45 | disposition home or self-care (01) | DRG 291 ==
LOC: EDH 11:14 → EDHIP 11:33 → 3AH 03-28 00:36
PROVIDERS: ADMIT Internal Medicine Hematology & Oncology; ATTEND Internal Medicine Hematology & Oncology
PROC: 0TB13ZX Excision of Left Kidney, Percutaneous Approach, Diagnostic (ICD-10-PCS; principal; 2019-03-31)
DX: I13.0 Hypertensive heart and chronic kidney disease with heart failure and stage 1 through stage 4 chronic kidney disease, or unspecified chronic kidney disease (principal); E43 Unspecified severe protein-calorie malnutrition; I50.31 Acute diastolic (congestive) heart failure; J44.1 Chronic obstructive pulmonary disease with (acute) exacerbation; N17.9 Acute kidney failure, unspecified; E87.1 Hypo-osmolality and hyponatremia; Z68.41 Body mass index [BMI] 40.0-44.9, adult; S37.019A Minor contusion of unspecified kidney, initial encounter; M32.14 Glomerular disease in systemic lupus erythematosus; T38.0X5A Adverse effect of glucocorticoids and synthetic analogues, initial encounter; N18.9 Chronic kidney disease, unspecified; E11.22 Type 2 diabetes mellitus with diabetic chronic kidney disease; I25.10 Atherosclerotic heart disease of native coronary artery without angina pectoris; E11.65 Type 2 diabetes mellitus with hyperglycemia; E87.6 Hypokalemia; E83.42 Hypomagnesemia; M32.9 Systemic lupus erythematosus, unspecified; E87.5 Hyperkalemia; F02.80 Dementia in other diseases classified elsewhere, unspecified severity, without behavioral disturbance, psychotic disturbance, mood disturbance, and anxiety; N05.9 Unspecified nephritic syndrome with unspecified morphologic changes; Z90.710 Acquired absence of both cervix and uterus; G89.29 Other chronic pain; E66.9 Obesity, unspecified; X58.XXXA Exposure to other specified factors, initial encounter; Y93.89 Activity, other specified; Y92.89 Other specified places as the place of occurrence of the external cause; Y99.8 Other external cause status; Z88.8 Allergy status to other drugs, medicaments and biological substances
CPT/HCPCS: 36415; 50200; 71045; 77012; 80048; 80053; 81001; 82010; 82570; 82947; 82948; 83036; 83735; 83880; 84100; 84132; 84156; 85025; 85027; 86160; 93306; 94640; 94664; G0378; J0456; J0696; J1815; J1940; J2250; J2405; J2930; J3010; J3475; J3480; J3490; J7030; J7070; J7517; J8610

== ENCOUNTER 2019-05-15 14:07 | Emergency (ER) | payer MEDICARE ==
[~2019-05-15 14:07] MED LIST changes: -ALBU2.5V2 IH; -ALBUHFA IH; -ALPR-411 PO; +ALPR1TAB2 PO; +BENZ-17 PO; -BENZ-39 PO; -DIPH25TA20 PO; +DIPH25TA51 PO; +FOLI1 PO; -FOLI1TAB15 PO; -FURO40TA5 PO; +FURO40TA7 PO; +HYDR-4068 PO; -HYDR28OI10 TP; -INSU100I21 SQ; +INSU100V12 SQ; -LEVO100T12 PO; -LID5O TP; -METO-409 PO; +METO100T7 PO; -ONDA8TAB11 PO; +ONDA8TAB5 PO; -POTA-79 PO; +POTA99TA21 PO; -ROPI1TAB38 PO; +ROPI2TAB9 PO; +[UNRECOGNIZED DRUG - CODE] PO; -[UNRECOGNIZED DRUG - CODE] PO
[2019-05-15] MEDS ORDERED: ACETAMINOPHEN EXTRA STRENGTH 500 MG TABLET ONE (14:58)
== END 2019-05-15 16:08 | disposition home or self-care (01) ==
LOC: EDH 14:07
DX: S90.31XA Contusion of right foot, initial encounter (principal); I11.0 Hypertensive heart disease with heart failure; I50.9 Heart failure, unspecified; E11.9 Type 2 diabetes mellitus without complications; J44.9 Chronic obstructive pulmonary disease, unspecified; M79.7 Fibromyalgia; I25.10 Atherosclerotic heart disease of native coronary artery without angina pectoris; M06.9 Rheumatoid arthritis, unspecified; Z90.49 Acquired absence of other specified parts of digestive tract; Z90.710 Acquired absence of both cervix and uterus; Z98.890 Other specified postprocedural states; Z88.1 Allergy status to other antibiotic agents; Z88.8 Allergy status to other drugs, medicaments and biological substances; W20.8XXA Other cause of strike by thrown, projected or falling object, initial encounter; Y93.89 Activity, other specified; Y92.481 Parking lot as the place of occurrence of the external cause; Y99.8 Other external cause status
CPT/HCPCS: 73630

== ENCOUNTER → 2019-10-26 | Outpatient (CLI) | payer OTHER, MEDICARE ==
[~2019-10-26] MED LIST changes: +ACET-2743 PO; +ALBUHFA IH; -ASPI-555 PO; +ASPI-556 PO; +BUDE10.2 IH; -DIPH25TA51 PO; -ESOM40CA PO; +FENT1PAT26 TD; -FURO40TA7 PO; +GUAI100S72 PO; -HYDR12.54 PO; +IPRA3AMP24 IH; +LIDOCAINE HCL 1% 20 ML VIAL ONE; -METO100T7 PO; +PHENYLEPHRINE HCL 10 MG/ML 1ML VIAL IV ONE; +POTA-79 PO; -POTA99TA21 PO; +PROM5SYR PO; +PROPOFOL 10 MG/ML 20ML VIAL IV ONE; -TEMA30CA5 PO; +TIOT18CA3 IH; -VALS160T2 PO; +VALS160T29 PO
== END | disposition home or self-care (01) ==
LOC: RAH 15:14
PROVIDERS: ATTEND Internal Medicine Hematology & Oncology
DX: N18.9 Chronic kidney disease, unspecified (principal); I67.83 Posterior reversible encephalopathy syndrome; E11.9 Type 2 diabetes mellitus without complications; R11.2 Nausea with vomiting, unspecified; R50.9 Fever, unspecified
CPT/HCPCS: 76770; J2370; J2704